=== PATIENT | male | born 1990 | race Caucasian/White ===

== ENCOUNTER 2024-02-11 16:20 | Outpatient (REF) | payer OTHER, SELFPAY ==
[2024-02-11 18:08] LABS: Creatinine Urine 139.57 mg/dL; Microalbum/Creatinine Ratio Ur 11.4 ug/mg cr (<30)
[2024-02-11 18:13] LABS: Alanine Aminotransferase 26 U/L (0-40); Albumin Level 4.3 g/dL (3.5-5.0); Alkaline Phosphatase 60 U/L (39-117); Anion Gap 13 (12-20); Aspartate Amino Transferase 15 U/L (5-37); Bilirubin Total 0.2 mg/dL (0.0-1.0); Blood Urea Nitrogen 20 mg/dL (9-16); Calcium 10.1 mg/dL (8.4-10.2); Carbon Dioxide 26 mmol/L (22-29); Chloride 106 mmol/L (96-108); Estimated Glomerular Filt Rate > 60; Glucose Random 120 mg/dL (60-115); Potassium 4.1 mmol/L (3.3-5.1); Sodium 141 mmol/L (135-145); Total Protein 7.2 g/dL (6.5-8.0); Uric Acid 9.8 mg/dL (3.4-7.0)
== END 2024-02-11 16:21 | disposition home or self-care (01) ==
LOC: HO.LAB 16:20
PROVIDERS: PCP Internal Medicine; Visit Provider Internal Medicine
DX: G47.33 Obstructive sleep apnea (adult) (pediatric) (principal); I10 Essential (primary) hypertension; M79.673 Pain in unspecified foot; N20.0 Calculus of kidney; Z68.42 Body mass index [BMI] 45.0-49.9, adult
CPT/HCPCS: 36415; 80053; 82043; 82570; 84550

== ENCOUNTER → 2024-02-16 14:46 | Outpatient (REF) | payer OTHER, SELFPAY ==
--- NOTE | 2024-02-16 14:56 | ECG_ITS ---
Test Reason : ADHD Blood Pressure : / mmHG Vent. Rate : 082 BPM Atrial Rate : 082 BPM P-R Int : 138 ms QRS Dur : 080 ms QT Int : 366 ms P-R-T Axes : 040 042 057 degrees QTc Int : 427 ms Normal sinus rhythm with sinus arrhythmia Increased R/S ratio in V1, consider early transition or posterior infarct - possibly normal variant or from body habitus/lead placement. Borderline ECG No previous ECGs available Referred By: Gustabo Carbone Electronically Signed By:SUPA GE
== END ==
LOC: HO.CARD 14:46
PROVIDERS: PCP Internal Medicine; Visit Provider Nurse Practitioner Psychiatric/Mental Health
DX: F90.9 Attention-deficit hyperactivity disorder, unspecified type (principal); F41.1 Generalized anxiety disorder; F32.A Depression, unspecified
CPT/HCPCS: 93005

== ENCOUNTER → 2024-02-16 14:56 | Outpatient (BNV) | payer OTHER, SELFPAY | PROVIDERS: PCP Internal Medicine; Visit Provider Internal Medicine | DX: I49.9 Cardiac arrhythmia, unspecified (principal) | CPT/HCPCS: 93010 ==

== ENCOUNTER 2024-03-26 12:29 | Outpatient (REF) | payer OTHER, SELFPAY ==
--- NOTE | ~2024-03-26 | XR_ITS ---
EXAMINATION: XR KNEE, LEFT XR KNEE AP STANDING CLINICAL INFORMATION: Pain. COMPARISON: None TECHNIQUE: Lateral and axial views of the left knee were obtained. AP bilateral standing view of the knees was obtained. FINDINGS: Bones and soft tissues are normal. No fracture or joint effusion. Alignment is anatomic. Joint spaces are well maintained. No abnormal soft tissue calcification. XR/XR knee LT 3V IMPRESSION: Normal knee radiographs. Electronically signed by: Froy Hector MD 04/15/2024 05:25 PM EDT
--- NOTE | ~2024-03-26 | XR_ITS ---
EXAMINATION: XR KNEE, RIGHT CLINICAL INFORMATION: Pain COMPARISON: None available. TECHNIQUE: Single AP standing view of the right knee. FINDINGS: No fracture, dislocation, or focal bone lesion. Alignment is anatomic. Joint spaces are maintained. Soft tissues appear normal. XR/XR knee RT 1V IMPRESSION: Normal AP view right knee. Electronically signed by: Anthony Molina MD 05/28/2024 10:15 AM EDT
== END 2024-03-26 12:30 | disposition home or self-care (01) ==
LOC: HO.HOSX 12:29
PROVIDERS: PCP Internal Medicine; Visit Provider Physician Assistant
DX: M25.569 Pain in unspecified knee (principal); M23.92 Unspecified internal derangement of left knee
CPT/HCPCS: 73560; 73562; 99202

== ENCOUNTER → 2024-03-26 12:32 | Outpatient (BNV) | payer OTHER, SELFPAY | PROVIDERS: PCP Internal Medicine; Visit Provider Radiology Diagnostic Radiology | DX: M25.562 Pain in left knee (principal) | CPT/HCPCS: 73560 ==

== ENCOUNTER 2024-03-26 12:55 | Outpatient (AMB) | payer OTHER, SELFPAY ==
--- NOTE | 2024-03-26 12:56 | A.OFFVIS_ITS ---
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 Patient reports off and on pain for a couple a couple weeks. He states that one day he started to have sharp pain all over the knee and it went behind the knee/calf. Patient mentions his knee would lock up on him as well. 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 The patient was evaluated on 02/26/24 with a complaint of left knee pain present for two days that woke him up from his sle ep. ? ? While in the office today, the patient reports intermittent pain for a couple of weeks. He expresses that he started to have sharp pain over the left knee. He claims this pain radiated behind the left knee and to the left calf. He also reports locking with the left knee. ? [facility] Social History (Updated 03/26/24 @ 13:04 by aMrvin Huerta) Alcohol intake: current Alcohol intake frequency: holidays/special occasions only Patient Tobacco Use Status: Never used Tobacco Substance Use Type: Marijuana Current occupational status: unemployed Review of Systems Const All systems reviewed & are unremarkable except as noted in HPI and below Physical Exam Vital Signs: BMI result Body Mass Index 45.9 Const General: cooperative and no acute distress Orientation/consciousness: patient oriented x3 Resp Effort & Inspection: normal respiratory effort and able to speak in complete sentences Cardio Peripheral pulses: Peripheral pulses 2+ throughout Skin General skin exam: no rashes or lesions noted Neuro General: patient oriented x3 Extrem Other: Left knee: Normal to inspection. No ecchymosis, erythema, or joint effusion. No tenderness to palpation along the medial or lateral joint lines. Full knee extension and flexion. Negative Sehllie's. Negative anterior drawer. NVI.? Assessment & Plan Assessment & Plan (1) Internal derangement of left knee: Code(s): M23.92 - Unspecified internal derangement of left knee Category: Medical Plan Mr. Acosta is a 33-year-old male who presents in the office today, as a new patient, for an evaluation of left knee pain. The patient was evaluated on 02/26/24 with a complaint of left knee pain present for two days that woke him up from his sleep. ?? ? While in the office today, the patient reports intermittent pain for a couple of weeks. He expresses that he started to have sharp pain over the left knee. He claims this pain radiated behind the left knee and to the left calf. He also reports locking with the left knee.? ? The patient was recently initiated on allopurinol 300 mg PO daily to treat gout. Therefore, the patient will be referred to Rheumatology for further evaluation and treatment. Follow-up will be PRN, or sooner if needed. ? ? X-rays of the left knee which were obtained while in the office today and were reviewed by me, Silvia Salazar PA-C, revealed no acute fracture or dislocation. ? Orders: Orders XR knee LT 3V Today M25.569 - Pain in unspecified knee XR knee RT 1V Today M25.569 - Pain in unspecified knee Referrals Rheumatology Referral M23.92 - Unspecified internal derangement of left knee Patient Instructions: Scribed by Shannon Bermudez, rn medical surgical, for Silvia Salazar PA-C on 03/26/2024 at 1:01 pm, EST.? Coding Level of Care Code New Pt Level 4 (58162) Diagnoses Internal derangement of left knee M23.92
[2024-03-26 13:05] VITALS: BMI 45.9
== END 2024-03-26 13:22 | disposition home or self-care (01) ==
PROVIDERS: PCP Internal Medicine; Visit Provider Physician Assistant
DX: M23.92 Unspecified internal derangement of left knee (principal)
CPT/HCPCS: 99203

== ENCOUNTER 2024-04-12 16:39 | Outpatient (REF) | payer OTHER, SELFPAY ==
[2024-04-12 18:39] LABS: Alanine Aminotransferase 25 U/L (0-40); Albumin Level 4.4 g/dL (3.5-5.0); Alkaline Phosphatase 62 U/L (39-117); Anion Gap 13 (12-20); Aspartate Amino Transferase 18 U/L (5-37); Bilirubin Total 0.6 mg/dL (0.0-1.0); Blood Urea Nitrogen 16 mg/dL (9-16); Calcium 9.7 mg/dL (8.4-10.2); Carbon Dioxide 25 mmol/L (22-29); Chloride 105 mmol/L (96-108); Estimated Glomerular Filt Rate > 60; Glucose Random 113 mg/dL (60-115); Potassium 3.3 mmol/L (3.3-5.1); Sodium 140 mmol/L (135-145); Total Protein 7.2 g/dL (6.5-8.0); Uric Acid 7.6 mg/dL (3.4-7.0)
== END 2024-04-12 16:40 | disposition home or self-care (01) ==
LOC: HO.LAB 16:39
PROVIDERS: PCP Internal Medicine; Visit Provider Internal Medicine
DX: E79.0 Hyperuricemia without signs of inflammatory arthritis and tophaceous disease (principal); G47.33 Obstructive sleep apnea (adult) (pediatric); I10 Essential (primary) hypertension; Z68.42 Body mass index [BMI] 45.0-49.9, adult
CPT/HCPCS: 36415; 80053; 84550

== ENCOUNTER 2024-05-06 07:50 | Outpatient (AMB) | payer OTHER, SELFPAY ==
--- NOTE | 2024-05-06 07:52 | MHC.OFFVIS ---
Vital Signs 05/06/24 07:57 Height 5 ft 11 in Weight 328 lb 4.293 oz BMI 45.8 BP 115/72 Blood Pressure Location Lt brachial Position Sitting Pulse 82 Pulse Source Pulse Oximeter Pulse Oximetry (%) 94 Oxygen Delivery Method Room Air Intake Visit Reasons: derangement of left knee Intake Note: Patient presents for derangement of the left knee. Allergies talcum podwer Allergy (Intermediate, Uncoded 03/26/24 13:01) Rash Medication List - Last Reconciled 05/06/24 by Adilene Gil MD allopurinol 300 mg PO DAILY bupropion HCl XL 300 mg PO QAM lisdexamfetamine (Vyvanse) 60 mg PO DAILY losartan-hydrochlorothiazide 50-12.5 mg 1 tab PO DAILY HPI Comments Details: Patient is a 33 y.o. morbidly obese male with depression/anxiety and HTN who presents for evaluation of recurrent joint pain and swelling. Patient states that for the past 10 years he has been having intermittent, transient monoarticular pain, redness and swelling (pictures on phone viewed showing swelling and overlying erythema to the 1st MTP, ankle and foot). Initially involving the feet including the 1st MTP and subsequently involving the ankles, knees, and elbows. Patient reports that he does not know of a trigger. He would wake with the pain and it would be so excruciating that he could not even walk. He also reports involvement of his right achilles tendon, but does note a previous injury to the tendon when he was a teenager. He also reports back pain and stiffness lasting 30-60 mins in the morning He denies history of psoriasis or any other rash, personal or known family history of IBD, hand pain/stiffness, dactylitis, hx of eye inflammation requiring eye drops. Risk Factors for Gout Obesity, HTN, and hydrochlorothiazide use Denies: Family history of gout, CKD, EtOH use and use of medications: low-dose ASA, cyclosporine PFSH Social History (Updated 03/26/24 @ 13:04 by Marvin Huerta) Alcohol intake: current Alcohol intake frequency: holidays/special occasions only Patient Tobacco Use Status: Never used Tobacco Substance Use Type: Marijuana Current occupational status: unemployed Review of Systems Const Details: Review of Systems Constitutional: Denies fever, chills, weight loss ENT: Denies vision changes, eye pain or eye redness, dental caries, dry mouth GI: Denies nausea, vomiting, diarrhea, abdominal pain, change in BM Pulm: Denies SOB, HUTCHINS, hemoptysis, wheezing Cards: Denies chest pain, palpitations Skin: Denies Raynaud's, rash, nail changes, photosensitivity, EQUAL OPPORTUNITY COUNSELOR: Denies headaches, weakness, paresthesias, recurrent falls MSK: as per HPI All other systems reviewed and are unremarkable except noted above Physical Exam Vital Signs: Last Vital Signs Pulse 82 05/06/24 07:57 BP 115/72 05/06/24 07:57 Pulse Ox 94 05/06/24 07:57 Oxygen Delivery Method Room Air 05/06/24 07:57 BMI result Body Mass Index 45.8 Const Other: Physical Examination Patient well appearing and in no apparent painful distress Able to rise from chair without support. ?Gait normal. Constitutional Mucous membranes pink and moist patient alert and cooperative HEENT Conjunctiva and sclera clear. ?Pupils equal round and reactive to light. ?No lymphadenopathy. ?Normal dentition. Respiratory System Normal respiratory effort and able to speak in complete sentences. ?Clear to auscultation bilaterally. ?No crackles, rales, rhonchi, wheezes heard. Cardiac System Regular rate and rhythm. ?S1 and S2 heard no murmurs. ?Radial pulses intact bilaterally MSK No deformity, swelling, abnormalities noted to bilateral hands. ?No evidence of synovitis. ?Able to move all joints with full range of motion, without limitation. Normal Schobers test and normal occiput to wall test Skin No tophi noted to digits on hand or feet, olecranon bursa, extensor surface of forearm, achilles tendon, antihelix of ear Normal nails without pitting Results Reviewed Results Reviewed: Laboratory Tests 02/11/24 04/12/24 16:28 15:25 Sodium 141 140 Potassium 4.1 3.3 Chloride 106 105 Carbon Dioxide 26 25 BUN 20 H 16 Creatinine 0.83 0.84 Uric Acid 9.8 H 7.6 H Knee x-ray 03/26/2024 reviewed ordered by Froy Hector. No evidence of chondrocalcinosis. No evidence of joint space narrowing or any effusions. (my read) Assessment & Plan Assessment & Plan (1) Inflammatory arthritis: Code(s): M19.90 - Unspecified osteoarthritis, unspecified site Plan: #Inflammatory arthritis Patient with symptoms consistent with crystalline arthropathy with recurrent periods of acute attacks and intercritical periods. This has primarily involved the feet, ankle and knees. Based on his hyperuricemia and this history, the story is most consistent with gout. Unfirtunately no fluid was ever removed and checked for gout. Differentials include ank spond, CCPD arthropathy, atypical presentation of RA. Will check CBC, CMP, UA, ESR and CRP Based on last UA done 03/2024 patient not at goal UA <6. Will increase allopurinol to 400mg and add colchicine 0.6mg to prevent flares Will also check XRs of SI joints, feet and ankles as well. Will reach out to radiology to determine if DECT can be done Plan I spent 65 minutes reviewing the record and labs, seeing the patient, discussing the treatment plan, contacting radiologists at [facility], [facility], [facility] and [facility] to locate a DECT and documenting in the medical record Orders: Orders XR ankle RT min 3V 4 Weeks M10.9 - Gout, unspecified, M19.90 - Unspecified osteoarthritis, unspecified site XR foot LT min 3V 4 Weeks M10.9 - Gout, unspecified, M19.90 - Unspecified osteoarthritis, unspecified site XR sacroiliac joint min 3V 4 Weeks M10.9 - Gout, unspecified, M19.90 - Unspecified osteoarthritis, unspecified site Cyclic Citrullinated Peptide 4 Weeks M10.9 - Gout, unspecified, M19.90 - Unspecified osteoarthritis, unspecified site Comprehensive Met. Panel 4 Weeks M10.9 - Gout, unspecified, M19.90 - Unspecified osteoarthritis, unspecified site [id number]-[id number] Dehydrogen 4 Weeks M10.9 - Gout, unspecified, M19.90 - Unspecified osteoarthritis, unspecified site HLA B27 4 Weeks M10.9 - Gout, unspecified, M19.90 - Unspecified osteoarthritis, unspecified site XR ankle LT min 3V 4 Weeks M10.9 - Gout, unspecified, M19.90 - Unspecified osteoarthritis, unspecified site XR foot RT min 3V 4 Weeks M10.9 - Gout, unspecified, M19.90 - Unspecified osteoarthritis, unspecified site Rheumatoid Factor 4 Weeks M10.9 - Gout, unspecified, M19.90 - Unspecified osteoarthritis, unspecified site Erythrocyte Sedimentation Rate 4 Weeks M10.9 - Gout, unspecified, M19.90 - Unspecified osteoarthritis, unspecified site Complete Blood Count Auto Diff 4 Weeks M10.9 - Gout, unspecified, M19.90 - Unspecified osteoarthritis, unspecified site C Reactive Protein 4 Weeks M10.9 - Gout, unspecified, M19.90 - Unspecified osteoarthritis, unspecified site Medications: New colchicine 0.6 mg PO DAILY 90 days 90 tabs 1RF allopurinol 400 mg (2 x 200 mg) PO DAILY 60 days 120 tabs 0RF Coding Level of Care Code New Pt Level 5 (33469) Complex EM visit Add On G2211 Diagnoses Inflammatory arthritis M19.90
[2024-05-06 07:57] VITALS: BP 115/72; PULSE 82; O2SAT 94; BMI 45.8
== END 2024-05-06 08:44 | disposition home or self-care (01) ==
PROVIDERS: PCP Internal Medicine; Visit Provider Student in an Organized Health Care Education/Training Program
DX: M19.90 Unspecified osteoarthritis, unspecified site (principal)
CPT/HCPCS: 99205; G2211

== ENCOUNTER → 2024-05-06 07:50 | Outpatient (BNVA) | payer OTHER, SELFPAY | PROVIDERS: PCP Internal Medicine; Visit Provider Student in an Organized Health Care Education/Training Program | DX: M19.90 Unspecified osteoarthritis, unspecified site (principal) | CPT/HCPCS: 99202 ==

== ENCOUNTER 2024-06-02 16:25 | Outpatient (REF) | payer OTHER, SELFPAY ==
[2024-06-02 16:45] LABS: MANUAL DIFF FLAG NO
[2024-06-02 19:49] LABS: Basophils Percent Auto 0.4 % (0-2); Eosinophils Absolute Auto 0.1 X10*3/uL (0.0-0.4); Eosinophils Percent Auto 0.7 % (0-4); Hematocrit 39.5 % (42.0-52.0); Hemoglobin 13.5 g/dl (14.0-18.0); Imm Gran Abs Auto 0.01 X10*3/uL (0.00-0.03); Imm Gran Pct Auto 0.1 % (0.0-0.4); Lymphocytes Absolute Auto 2.6 X10*3/uL (1.2-4.9); Lymphocytes Percent Auto 31.1 % (20-40); Mean Corpuscular HGB Conc 34.2 g/dl (31.0-36.0); Mean Corpuscular Hemoglobin 27.8 pg (27.0-33.0); Mean Corpuscular Volume 81.4 fL (80.0-98.0); Mean Platelet Volume 10.2 fL (9.4-12.4); Monocytes Absolute Auto 0.5 X10*3/uL (0.1-1.2); Monocytes Percent Auto 6.6 % (2-11); Neutrophils Percent Auto 61.1 % (45-73); Platelet Count 356 X10*3/uL (160-400); Red Blood Count 4.85 X10*6/uL (4.60-5.80); Red Cell Distribution Width 13.3 % (11.0-16.0); White Blood Count 8.2 X10*3/uL (4.8-10.8)
[2024-06-02 20:08] LABS: Rheumatoid Factor < 13.0 IU/mL (<15.0)
[2024-06-02 20:09] LABS: Alanine Aminotransferase 32 U/L (0-40); Albumin Level 4.6 g/dL (3.5-5.0); Alkaline Phosphatase 64 U/L (39-117); Anion Gap 18 (12-20); Aspartate Amino Transferase 23 U/L (5-37); Bilirubin Total 0.6 mg/dL (0.0-1.0); Blood Urea Nitrogen 18 mg/dL (9-16); C Reactive Protein 0.83 mg/dL (< or = 0.50); Calcium 9.8 mg/dL (8.4-10.2); Carbon Dioxide 24 mmol/L (22-29); Chloride 102 mmol/L (96-108); Estimated Glomerular Filt Rate > 60; Glucose Random 99 mg/dL (60-115); Potassium 3.7 mmol/L (3.3-5.1); Sodium 140 mmol/L (135-145); Total Protein 7.6 g/dL (6.5-8.0)
[2024-06-02 20:33] LABS: Erythrocyte Sedimentation Rate 19 MM/HR (0-15)
[2024-06-08 09:19] LABS: Cyclic Citrullinated Peptide <16 UNITS
[2024-06-09 20:54] LABS: HLA B27 Negative (Negative)
[2024-06-09 21:24] LABS: Glucose-6-Phosphate Dehydrogen 24.9 U/g Hgb (7.0-20.5)
== END 2024-06-02 16:26 | disposition home or self-care (01) ==
LOC: HO.LAB 16:25
PROVIDERS: PCP Internal Medicine; Visit Provider Student in an Organized Health Care Education/Training Program
DX: M19.90 Unspecified osteoarthritis, unspecified site (principal); M10.9 Gout, unspecified
CPT/HCPCS: 36415; 72202; 73610; 73630; 80053; 82955; 85025; 85652; 86140; 86200; 86431; 86812

== ENCOUNTER 2024-06-03 10:44 | Outpatient (AMB) | payer OTHER, SELFPAY ==
[2024-06-03 10:47] VITALS: BP 128/70; PULSE 72; O2SAT 98; BMI 44.5
--- NOTE | 2024-06-03 10:47 | MHC.OFFVIS ---
Vital Signs 06/03/24 10:47 Height 5 ft 11 in Weight 319 lb BMI 44.5 BP 128/70 Blood Pressure Location Lt brachial Position Sitting Pulse 72 Pulse Source Pulse Oximeter Pulse Oximetry (%) 98 Oxygen Delivery Method Room Air Intake Visit Reasons: derangement of left knee/cm Intake Note: Patient presents for follow up on derangement of left knee. He was last seen in the office with Dr. Gil on 05/06/24. Allergies talcum podwer Allergy (Intermediate, Uncoded 06/03/24 10:49) Rash Medication List - Last Reconciled 06/03/24 by Adilene Gil MD allopurinol 400 mg (2 x 200 mg) PO DAILY 90 days bupropion HCl XL 300 mg PO QAM colchicine 0.6 mg PO DAILY 90 days lisdexamfetamine (Vyvanse) 60 mg PO DAILY losartan-hydrochlorothiazide 50-12.5 mg 1 tab PO DAILY HPI Comments Details: Patient is a 33-year-old morbidly obese male with depression/anxiety and hypertension presents for follow up of recurrent joint pain and swelling Interval History: Last seen 05/06/2024 with me. At that time patient was being evaluated for polyarticular complaints including recurrent monoarticular arthritis of the 1st MTP, ankle and foot swelling as well as back pain. Based on his history and exam the most likely diagnosis was gout. Labs including HLA B27 and imaging including SI joint x-rays did not reveal any sacroiliitis. Today patient states he is doing overall better. No further monoarticular arthritic attacks since starting allopurinol. The allopurinol dose was increased last visit due to uric acid not at goal and patient is tolerating this well as well as the colchicine. Rheumatologic History: Presented with recurrent monoarticular arthritis involving the 1st MTP, ankle as well as foot. Presumed diagnosis of gout. Started on allopurinol Current Rheumatology Medication(s): Allopurinol 400mg Colchicine 0.6 mg [facility] Medical History (Updated 06/03/24 @ 11:16 by Adilene Gil MD) Gout Social History (Updated 03/26/24 @ 13:04 by Marvin Huerta) Alcohol intake: current Alcohol intake frequency: holidays/special occasions only Patient Tobacco Use Status: Never used Tobacco Substance Use Type: Marijuana Current occupational status: unemployed Review of Systems Const Details: Review of Systems Constitutional: Denies fever, chills, weight loss ENT: Denies vision changes, eye pain or eye redness, dental caries, dry mouth GI: Denies nausea, vomiting, diarrhea, abdominal pain, change in BM Pulm: Denies SOB, HUTCHINS, hemoptysis, wheezing Cards: Denies chest pain, palpitations Skin: Denies Raynaud's, rash, nail changes, photosensitivity, MORTGAGE LOAN COORDINATOR: Denies headaches, weakness, paresthesias, recurrent falls MSK: as per HPI All other systems reviewed and are unremarkable except noted above Physical Exam Vital Signs: Last Vital Signs Pulse 72 06/03/24 10:47 BP 128/70 06/03/24 10:47 Pulse Ox 98 06/03/24 10:47 Oxygen Delivery Method Room Air 06/03/24 10:47 BMI result Body Mass Index 44.5 Physical Examination CONSTITUITIONAL Patient alert and cooperative. Well appearing and in no apparent painful distress HEENT Conjunctiva and sclera clear. ?Pupils equal round and reactive to light. ?No lymphadenopathy. ?Normal dentition. No oral or nasal ulcers noted. No evidence of discoid rash to the mili of ears CHEST/RESPIRATORY SYSTEM Normal respiratory effort and able to speak in complete sentences. ?Clear to auscultation bilaterally. ?No crackles, rales, rhonchi, wheezes heard. CARDIAC SYSTEM Regular rate and rhythm. ?S1 and S2 heard no murmurs. ?Radial pulses intact bilaterally MSK Hands: ?Good agriculture specialist strength bilaterally - 5/5. ?No deformities noted. ?No synovitis noted to the MCPs, PIPs or DIPs. ?No tenderness to palpation of these joints. Wrists: ?Full range of motion at the wrists without pain. ?No tenderness to palpation or synovitis noted to the wrists. Elbows: Full range of motion without pain. No tenderness, weakness, swelling, increased warmth or erythema. Shoulders: Full range of motion without pain. No tenderness, weakness, swelling, increased warmth or erythema. Hips: Full range of motion without pain. Hip bursa: No tenderness to palpation Knees: ?Full range of motion. ?No tenderness, swelling, increased warmth or erythema.?No effusion or crepitations Ankles: Full range of motion. ?No tenderness, swelling, increased warmth or erythema.? Feet: ?Negative squeeze test. ?No tenderness to palpation or swelling of the MTPs. Tender points:??No tenderness to palpation of the neck, shoulders, chest, elbows, hips, buttocks or knees. SKIN Skin intact without rashes. No tophi noted Results Reviewed Results Reviewed: Laboratory Tests 02/11/24 04/12/24 06/02/24 16:28 15:25 16:43 WBC 8.2 RBC 4.85 Hgb 13.5 L Hct 39.5 L Plt Count 356 ESR 19 H Sodium 140 Potassium 3.7 Chloride 102 Carbon Dioxide 24 BUN 18 H Creatinine 0.84 Uric Acid 9.8 H 7.6 H C-Reactive Protein 0.83 H Assessment & Plan Assessment & Plan (1) Gout: Code(s): M10.9 - Gout, unspecified Category: Medical Qualifiers: Gout site: foot Gout etiology: idiopathic Chronicity: chronic Laterality: unspecified laterality Presence of tophus: without tophus Qualified Code(s): M1A.0790 - Idiopathic chronic gout, unspecified ankle and foot, without tophus (tophi) Plan: # non crystal proven non tophaceous gout No further attacks of recurrent monoarticular arthritis. We will continue allopurinol at 400 mg. Check uric acid. We will also check dual energy CT scan, patient given script and told to contact [facility] Plan I spent 20 minutes reviewing the record and labs, seeing the patient, discussing the treatment plan and documenting in the medical record Orders: Orders Comprehensive Met. Panel 3 Months M10.9 - Gout, unspecified Complete Blood Count Auto Diff 3 Months M10.9 - Gout, unspecified C Reactive Protein 3 Months M10.9 - Gout, unspecified Erythrocyte Sedimentation Rate 3 Months M10.9 - Gout, unspecified Uric Acid Today M10.9 - Gout, unspecified Medications: Changed From allopurinol 400 mg (2 x 200 mg) PO DAILY 60 days 120 tabs 0RF M10.9 - Gout, unspecified To allopurinol 400 mg (2 x 200 mg) PO DAILY 90 days 180 tabs 1RF M10.9 - Gout, unspecified Coding Level of Care Code Est Pt Level 3 (17829) Complex EM visit Add On G2211 Diagnoses Idiopathic chronic gout of foot without tophus, unspecified laterality M1A.0790 Gout site: foot Gout etiology: idiopathic Chronicity: chronic Laterality: unspecified laterality Presence of tophus: without tophus
== END 2024-06-03 11:17 | disposition home or self-care (01) ==
LOC: HO.RHE 10:45
PROVIDERS: PCP Internal Medicine; Visit Provider Student in an Organized Health Care Education/Training Program
DX: M1A.0790 Idiopathic chronic gout, unspecified ankle and foot, without tophus (tophi) (principal)
CPT/HCPCS: 99213; G2211

== ENCOUNTER → 2024-06-03 10:44 | Outpatient (BNVA) | payer OTHER, SELFPAY | PROVIDERS: PCP Internal Medicine; Visit Provider Student in an Organized Health Care Education/Training Program | DX: M1A.0790 Idiopathic chronic gout, unspecified ankle and foot, without tophus (tophi) (principal); M23.92 Unspecified internal derangement of left knee; E66.01 Morbid (severe) obesity due to excess calories; Z68.41 Body mass index [BMI] 40.0-44.9, adult | CPT/HCPCS: 99212 ==

== ENCOUNTER 2024-10-21 15:38 | Outpatient (REF) | payer OTHER, SELFPAY ==
[2024-10-21 15:58] LABS: MANUAL DIFF FLAG NO
[2024-10-21 17:10] LABS: Basophils Percent Auto 0.4 % (0-2); Eosinophils Absolute Auto 0.1 X10*3/uL (0.0-0.4); Eosinophils Percent Auto 1.6 % (0-4); Hematocrit 39.9 % (42.0-52.0); Hemoglobin 13.7 g/dl (14.0-18.0); Imm Gran Abs Auto 0.02 X10*3/uL (0.00-0.03); Imm Gran Pct Auto 0.3 % (0.0-0.4); Lymphocytes Absolute Auto 2.5 X10*3/uL (1.2-4.9); Lymphocytes Percent Auto 33.7 % (20-40); Mean Corpuscular HGB Conc 34.3 g/dl (31.0-36.0); Mean Corpuscular Hemoglobin 28.4 pg (27.0-33.0); Mean Corpuscular Volume 82.6 fL (80.0-98.0); Mean Platelet Volume 9.6 fL (9.4-12.4); Monocytes Absolute Auto 0.6 X10*3/uL (0.1-1.2); Monocytes Percent Auto 8.4 % (2-11); Neutrophils Absolute Auto 4.2 x10*3/uL (2.0-8.3); Neutrophils Percent Auto 55.6 % (45-73); Platelet Count 302 X10*3/uL (160-400); Red Blood Count 4.83 X10*6/uL (4.60-5.80); Red Cell Distribution Width 12.5 % (11.0-16.0); White Blood Count 7.5 X10*3/uL (4.8-10.8)
[2024-10-21 17:45] LABS: Alanine Aminotransferase 72 U/L (0-40); Albumin Level 4.3 g/dL (3.5-5.0); Alkaline Phosphatase 54 U/L (39-117); Anion Gap 11 (12-20); Aspartate Amino Transferase 36 U/L (5-37); Bilirubin Total 0.4 mg/dL (0.0-1.0); Blood Urea Nitrogen 21 mg/dL (9-16); Calcium 9.3 mg/dL (8.4-10.2); Carbon Dioxide 27 mmol/L (22-29); Chloride 107 mmol/L (96-108); Estimated Glomerular Filt Rate > 60; Glucose Random 125 mg/dL (60-115); Potassium 3.9 mmol/L (3.3-5.1); Sodium 141 mmol/L (135-145); Total Protein 6.8 g/dL (6.5-8.0)
[2024-10-21 17:59] LABS: Thyroid Stimulating Hormone 1.78 uIU/mL (0.32-4.0)
== END 2024-10-21 15:39 | disposition home or self-care (01) ==
LOC: HO.LAB 15:38
PROVIDERS: PCP Internal Medicine; Visit Provider Internal Medicine
DX: G47.33 Obstructive sleep apnea (adult) (pediatric) (principal); I10 Essential (primary) hypertension; R53.83 Other fatigue; R63.5 Abnormal weight gain; M54.50 Low back pain, unspecified
CPT/HCPCS: 36415; 80053; 84443; 85025

== ENCOUNTER 2024-11-25 15:05 | Outpatient (AMB) | payer OTHER, SELFPAY ==
[2024-11-25 15:11] VITALS: BP 132/80; PULSE 97; O2SAT 99; BMI 47.7
--- NOTE | 2024-11-25 15:11 | A.OFFVIS_ITS ---
Vital Signs 11/25/24 15:11 Height 5 ft 11 in Weight 341 lb 11.464 oz BMI 47.7 BP 132/80 Blood Pressure Location Lt brachial Position Sitting Pulse 97 Pulse Source Pulse Oximeter Pulse Oximetry (%) 99 Oxygen Delivery Method Room Air Intake Visit Reasons: knee pain Intake Note: Patient states he is experiencing left achiles pain for a week and a half. Allergies talcum podwer Allergy (Intermediate, Uncoded 11/25/24 15:16) Rash Medication List - Last Reconciled 11/25/24 by Adilene Gil MD allopurinol 400 mg (2 x 200 mg) PO DAILY 90 days bupropion HCl XL 300 mg PO QAM colchicine 0.6 mg PO DAILY 90 days lisdexamfetamine (Vyvanse) 60 mg PO DAILY losartan-hydrochlorothiazide 50-12.5 mg 1 tab PO DAILY prednisone 10 mg PO DIRECTED HPI Comments Details: Patient is a 33-year-old morbidly obese male with depression/anxiety, hypertension and non crystal proven gout here today for follow up Interval History: Patient last seen 06/03/2024 with me. At at that time he was following up for a new diagnosis of presumed gout based on recurrent monoarticular arthritis of the 1st MTP, ankle and foot. He was tolerating allopurinol as well as colchicine. Today, Doing well tolerating meds Complaining of left heel pain for the past few days Rheumatologic History: Presented with recurrent monoarticular arthritis involving the 1st MTP, ankle as well as foot. Presumed diagnosis of gout. Started on allopurinol Current Rheumatology Medication(s): Allopurinol 400mg Colchicine 0.6 mg [facility] Medical History (Updated 06/03/24 @ 11:16 by Adilene Gil MD) Gout Social History (Updated 03/26/24 @ 13:04 by Marvin Huerta) Alcohol intake: current Alcohol intake frequency: holidays/special occasions only Patient Tobacco Use Status: Never used Tobacco Substance Use Type: Marijuana Current occupational status: unemployed Review of Systems Const Details: Review of Systems Constitutional: Denies fever, chills, weight loss ENT: Denies vision changes, eye pain or eye redness, dental caries, dry mouth GI: Denies nausea, vomiting, diarrhea, abdominal pain, change in BM Pulm: Denies SOB, HUTCHINS, hemoptysis, wheezing Cards: Denies chest pain, palpitations Skin: Denies Raynaud's, rash, nail changes, photosensitivity, [employer]: Denies headaches, weakness, paresthesias, recurrent falls MSK: as per HPI All other systems reviewed and are unremarkable except noted above Physical Exam Vital Signs: Last Vital Signs Pulse 97 11/25/24 15:11 BP 132/80 11/25/24 15:11 Pulse Ox 99 11/25/24 15:11 Oxygen Delivery Method Room Air 11/25/24 15:11 BMI result Body Mass Index 47.7 Vital signs reviewed Physical Examination CONSTITUITIONAL Patient alert and cooperative. Well appearing and in no apparent painful distress HEENT Conjunctiva and sclera clear. ?Pupils equal round and reactive to light. ?No lymphadenopathy. ? CHEST/RESPIRATORY SYSTEM Normal respiratory effort and able to speak in complete sentences. ?Clear to auscultation bilaterally. ?No crackles, rales, rhonchi, wheezes heard. CARDIAC SYSTEM Regular rate and rhythm. ?S1 and S2 heard no murmurs. ?Radial pulses intact bilaterally MSK Hands: ?Able to make a fist. No synovitis noted to the MCPs, PIPs or DIPs. ?No tenderness to palpation of these joints. No deformities noted. ? Wrists: ?Full range of motion at the wrists without pain. ?No tenderness to palpation or synovitis noted to the wrists. Elbows: Full range of motion without pain. No tenderness, weakness, swelling, increased warmth or erythema. Shoulders: Full range of active range of motion without pain. No tenderness, weakness, swelling, increased warmth or erythema. Knees: ?Full range of motion. ?No tenderness, swelling, increased warmth or erythema.?Crepitations bilaterally Ankles: Full range of motion. ?No tenderness, swelling, increased warmth or erythema.? Feet: ?Negative squeeze test. ?No tenderness to palpation or swelling of the MTPs. TTP of the achilles tendon insertion Tender points:?No tenderness to palpation of the bilateral trapezius, supraspinatus, greater trochanters, anterior costochondral junctions, bilateral gluteal areas, bilateral suboccipital muscle insertions SKIN Skin intact without rashes. No Tophi Results Reviewed Results Reviewed: Laboratory Tests 04/12/24 06/02/24 10/21/24 15:25 16:43 15:56 WBC 7.5 RBC 4.83 Hgb 13.7 L Hct 39.9 L Plt Count 302 ESR 19 H Sodium 141 Potassium 3.9 Chloride 107 Carbon Dioxide 27 BUN 21 H Creatinine 0.84 Uric Acid 7.6 H AST 36 ALT 72 H Alkaline Phosphatase 54 C-Reactive Protein 0.83 H Assessment & Plan Assessment & Plan (1) Gout: Code(s): M10.9 - Gout, unspecified Category: Medical Qualifiers: Gout site: foot Gout etiology: idiopathic Chronicity: chronic Laterality: unspecified laterality Presence of tophus: without tophus Qualified Code(s): M1A.0790 - Idiopathic chronic gout, unspecified ankle and foot, without tophus (tophi) Plan: #Non crystal proven non tophaceous gout Patient is a 33-year-old male with presumed gouty arthritis here today for follow up. Complaining of what seems to be Achilles enthesitis. This could be related to gout but given that we are not sure if he truly has gout or has some kind of other inflammatory arthritis I think exploring other diagnoses at this time would be prudent. He did mention that he at times gets abdominal pain, cramping associated with bloody stools which could be related to IBD. We will send him to GI for further evaluation. In the meantime we will give him a short course of steroids to speed up his recovery Plan - Allopurinol 400mg daily - Colchicine 0.6mg daily - Prednisone: 40mg x 3 days then 30mg x 3 days then 20mg x 3 days then 10 mg x 3 days then 5mg x 3 days then stop - GI Referral to [facility] for IBD - Labs today: CBC, CMP, ESR, CRP, UA - RTC 4 months (2) Bilateral primary osteoarthritis of knee: Code(s): M17.0 - Bilateral primary osteoarthritis of knee Plan: #Bilateral knee OA Patient's exam today is consistent with bilateral knee osteoarthritis. Encouraged weight loss. (3) Encounter for monitoring allopurinol therapy: Code(s): Z51.81 - Encounter for therapeutic drug level monitoring; Z79.899 - Other nursing home (current) drug therapy Plan: #Long-term Current Use of Allopurinol Risks and benefits of allopurinol discussed with patient Benefits include decreased gout flares, remission of gout and reduction of tophi Risks include allopurinol hypersensitivity syndrome which is a severe cutaneous adverse reaction associated with allopurinol use particularly in patients who are HLA B*5801 positive, increased transaminases, GI upset including diarrhea, nausea and vomiting, and other dermatologic manifestations. (4) On colchicine therapy: Code(s): Z79.899 - Other extermination inspector (current) drug therapy Plan: #Long-term use of colchicine Risks and benefits of long-term colchicine for the management of this patient's gout discussed with patient. Benefits include reduced occurrence of flares while we titrate and regulate his uric acid on allopurinol and other uric acid lowering medications. ? Risks include worsening myalgias especially if on statins and GI upset including diarrhea Plan I spent 30 minutes reviewing the record and labs, seeing the patient, discussing the treatment plan and documenting in the medical record Orders: Referrals Gastroenterology Referral K52.9 - Noninfective gastroenteritis and colitis, unspecified Medications: New prednisone Take 4 tablets for 3 days then 3 tablets for 3 days then 2 tablets for 3 days then 1 tablet for 3 days then stop 10 mg PO DIRECTED 30 tabs 0RF M1A.0790 - Idiopathic chronic gout, unspecified ankle and foot, without tophus (tophi) prednisone Take 4 tablets for 3 days then 3 tablets for 3 days then 2 tablets for 3 days then 1 tablet for 3 days then 0.5 tablets for 3 days then stop 10 mg PO DIRECTED 35 tabs 0RF M1A.0790 - Idiopathic chronic gout, unspecified ankle and foot, without tophus (tophi) Coding Level of Care Code Est Pt Level 4 (08129) Complex EM visit Add On G2211 Diagnoses Idiopathic chronic gout of foot without tophus, unspecified laterality M1A.0790 Gout site: foot Gout etiology: idiopathic Chronicity: chronic Laterality: unspecified laterality Presence of tophus: without tophus Bilateral primary osteoarthritis of knee M17.0 Encounter for monitoring allopurinol therapy Z51.81; Z79.899 On colchicine therapy Z79.899
--- OUTSIDE RECORDS SUMMARY | 2024-11-25 16:58 | XMS_ITS | Encounter Summary ---
Author Organization [facility] [employer] [facility] Address [address] [place] [address] [address] [place] [address] Care Team Providers Care Bag Bailer Name Role Phone Unavailable Primary Care Provider Unavailabl e Encounter Details Date Type Department Care Team (Latest Contact Info) Description 05/08/2022 Abstract C CONVERSIONS Dental, Provider, DDS Social History Tobacco Use Types Packs/Day Years Used Date Smoking Tobacco: Never Assessed Sex and Gender Information Value Date Recorded Sex Assigned at Male 05/27/2022 10:40 AM EDT Legal Sex Male 10:40 AM EDT Gender Identity Choose not to disclose 2 10:40 AM EDT Sexual Orientation Choose not to disclose 2021 10:40 AM EDT documented as of this encounter Plan of Treatment Not on file documented as of this encounter Visit Diagnoses Not on filedocumented in this encounter
--- OUTSIDE RECORDS SUMMARY | 2024-11-25 16:58 | XMS_ITS | Data Portability ---
Author Organization [place] - [facility] [id number] Address [address] [place] [address] Assessment No assessment recorded. Plan of Treatment Reminders Order Date Submit Date Provider Last Modified By Organization Details Last Modified Time Details Appointments None record ed. Lab None record ed. Referral None record ed. Procedures None record ed. Surgeries None record ed. Imaging None record ed. Medication Orders None record ed. Patient TargetsNo targets recorded. Patient InstructionsNo instructions recorded. Reason for Referral None Reported. Problems Name Problem SNOMED Code Status Onset Date Resolution Date Notes Provider Name and Address Organization Details Recorded Time Hypertensive disorder 33634101 Active Mana Lila null, [place] - [facility] 4 14:07:10 Anxiety 41120068 Active Mana Lila null, [place] - [facility] 4 14:07:16 Depressive disorder 62498881 Active Mana Lila null, [place] - [facility] 4 14:07:21 Attention deficit hyperactivity disorder 550800661 Active Mana Lila null, [place] - [facility] 4 14:07:27 Problem Notes None recorded. Procedures Surgical History Date Name Laterality Status Provider Name and Address Organization Details Recorded Time Remove tonsils and adenoids completed Mana Lila [place] - [facility] 03/09/2024 14:07:53 Imaging Results None recorded. Procedure Notes None recorded. Medical Equipment None Reported. Medications Name Sig Start Date Stop Date Status Note LastModified by Organization Details LastModified Time losartan active Not Available Not Avai lable Not Available allopurinol active Not Available Not A vailable Not Available Wellbutrin SR active Not Available Not Available Not Available Vyvanse active Not Available Not Avail able Not Available Vitals Date Recorded Body height Body mass index (BMI) Body weight Oxygen saturation Oxygen saturation in Arterial blood by Pulse oximetry Heart rate Respiratory rate Body temperature Systolic blood pressure Diastolic blood pressure Provider Name and Address Organization Details Last Updated DateTime 180.34 cm 46.9 kg/m2 835055. 04 g 98 % 98 % 71 /min 18 /min 98.7 [degF] 104 mm[Hg] 63 mm[Hg] Mana Lila [place] - [facility] 14:09:43 Social History Question Answer Notes LastModified by Organizat ion Details LastModified Time Tobacco Smoking Status Never Smoker Mana Lila null, [place] - [facility] 03/09/2024 14:07:40 What Is Your Level Of Alcohol Consumption? None Information not available 03/09/2024 Are You Currently Employed? No Information not available 03/09/2024 Which Illicit Or Recreational Drugs Have You Used? Marijuana Information not available 03/09/2024 Do You Use Any Illicit Or Recreational Drugs? Yes Information not available 03/09/2024 Have You Recently Traveled Abroad? No Information not available 03/09/2024 Do You Or Have You Ever Used Any Other Forms Of Tobacco Or Nicotine? No Information not available 03/09/2024 Sex: Unknown Functional Status None recorded. Mental Status None recorded. Family History Nothing Reported. Medical History No medical history recorded. Immunizations Vaccine Type Date Status Note Provider Nam e and Address Organization Details Recorded Time COVID-19, mRNA, LNP-S, bivalent, PF, 30 mcg/0.3 mL dose 07/05/2022 completed Mana Lila null, [place] - [facility] 03/09/2024 14:06:04 Influenza, split virus, quadrivalent, PF 07/05/2022 completed Mana Lila null, [place] - [facility] 03/09/2024 14:06:04 Past Encounters Encounter ID Performer Location Encounter Start Date Encounter Closed Date Diagnosis/Indication Diagnosis SNOMED-CT Code Diagnosis ICD10 Code Diagnosis Note [id number] [id number] [place] [address] 02/26/2022 15:26:14 02/26/2022 16:37:44 [id number] [facility]AN[facility] HIGH [id number] [facility] [address] [place] [address] 03/09/2024 13:58:32 03/09/2024 14:14:45 Mass of skin 511951757 R22.9 You were today for concern about a small lump on the left side of your chest.On exam, there is nothing in the area that is concerning or abnormal. You were most likely feeling some of the larger fat cells in the area. If anything changes or starts growing, definitely get rechecked Health Concerns Section Related Observation LastModified by Organization Detai ls LastModified Time None Recorded Concern Status LastModified by Organization Details LastModified Time None Recorded Advance Directives Directive None Recorded Payers Encounter Date Sequence Insurance Name Policy Number Policy Stark Covered Member ID Stark Member ID Guarantor Name 02/26/2022 1 [facility] PLAN (MEDICAID HMO) [id number] Loco Acosta [id number] Loco Acosta 03/09/2024 1 [facility] PLAN (MEDICAID HMO) [id number] Loco Acosta [id number] Loco Acosta Notes Date Note Type Note Provider Name and Address Organization Details Recorded Time 03/09/2024 text/html 33 y/o male here with tender bump on his L chest, under breast area, has lost a lot of weight recently, and wants to make sure there isn't anything abnormal ELEANOR Ibarra [facility] [place], [address], [place] - [facility] 03/09/2024 14:20:28
--- OUTSIDE RECORDS SUMMARY | 2024-11-25 16:58 | XMS_ITS | Clinical Summary ---
Author Organization [email or web address] Address [address] [place] [address] [address] [place] [address] Care Team Providers Care Health Information Administrator Name Role Phone Unavailable Primary Care Provider Unavailabl e Social History Tobacco Use Types Packs/Day Years Used Date Smoking Tobacco: Never Assessed Sex and Gender Information Value Date Recorded Sex Assigned at Male 05/27/2022 10:40 AM EDT Legal Sex Male 10:40 AM EDT Gender Identity Choose not to disclose 10:40 AM EDT Sexual Orientation Choose not to disclose 2021 10:40 AM EDT Plan of Treatment Health Maintenance Due Date Last Done Comments Depression Screening 1991 Alcohol/Substance Use Screening 2003 Tobacco Screening 2003 Family Planning (PISQ) 12/08/2006 DTaP/Tdap/Td Vaccines (1 - Tdap) 12/08/2010 Hepatitis B Vaccines (1 of 3 - 19+ 3-dose series) 12/08/2010 COVID-19 Vaccine ( - 2023-2 5 season) 2024 Influenza Vaccine (#1) 2024 Zoster Vaccines (1 of 2) 12/08/2041 RSV Patients and Pa tients Aged 60 years or older (1 - 1-dose 75+ series) 12/08/2066 HIB Vaccines Aged Out No longer eligi ble based on patient's age to complete this topic HPV Vaccines Aged Out No longer eligi ble based on patient's age to complete this topic Hepatitis A Vaccines Aged Out No long er eligible based on patient's age to complete this topic IPV Vaccines Aged Out No longer eligi ble based on patient's age to complete this topic Meningococcal Vaccine Aged Out No maycol fadumo eligible based on patient's age to complete this topic Pneumococcal Vaccine: Pediat rics (0 to 5 Years) and At-Risk Patients (6 to 49) Years) Aged Out No longer eligible b ased on patient's age to complete this topic RSV under 20 months Aged Out No longe r eligible based on patient's age to complete this topic Rotavirus Vaccines Aged Out No longer eligible based on patient's age to complete this topic
--- OUTSIDE RECORDS SUMMARY | 2024-11-25 16:58 | XMS_ITS | Clinical Summary ---
Author Organization 175 [facility] Address 175 [place] [address] Phone Care Team Providers Care Mechanical Technologist Name Role Phone Jeane Harper MD Primary Care Provider [phone] Allergies No known active allergies Medications lisdexamfetamin e (VYVANSE) 20 mg capsule Take 1 Capsule by mouth every morning. Active buPROPion XL (WELLBUTRIN XL) 300 mg 24 hr tablet Take 1 Tablet by mouth every morning. Active losartan-hydroC HLOROthiazide (HYZAAR) 50-12.5 mg per tablet Take 1 tablet by mouth 1 (one) time each day. Active allopurinoL 200 mg tablet Take 200 mg by mouth 1 (one) time each day. 08/23/2024 Active naproxen (NAPROSYN) 500 mg tablet Take 1 tablet (500 mg total) by mouth 2 (two) times a day with meals. Active colchicine (COLCRYS) 0.6 mg tablet Take 1 tablet (0.6 mg total) by mouth 1 (one) time each day. 08/15/2024 Active Active Problems Problem Noted Date Diagnosed Date ADHD 02/13/2024 Autism 02/13/2024 Depression 02/13/2024 Hypertension 02/13/2024 Morbid obesity (CMS/HCC V24, CMS/HCC V28) 2023 PTSD (post-traumatic stress disorder) 02/13/2024 Encounters Date Type Department Care Team Description 11/01/2024 3:15 PM EDT Office Visit Orthopedic Surgery [facility] 250 175 [facility] [address] [place] [address] Leeroy Lee, DPM Plantar fascial fibromatosis (Primary Dx); Follow-up exam; Tendinitis of right ankle; Tendinitis of left ankle 09/20/2024 2:30 PM EST Consult Bariatric Surgery - [place] [address] [address] Jerome Higgins MD Class 3 severe obesity due to excess calories without serious comorbidity with body mass index (BMI) of 45.0 to 49.9 in adult (CMS/HCC V24, CMS/HCC V28) (Primary Dx); Obesity (BMI 35.0-39.9 without comorbidity) 09/20/2024 Telephone Bariatric Surgery - [place] [address] [address] Jerome Higgins MD from Last 3 Months Social History Tobacco Use Types Packs/Day Years Used Date Smoking Tobacco: Never Assessed Sex and Gender Information Value Date Recorded Sex Assigned at Not on file Legal Sex Male 11:04 AM EDT Gender Identity Not on file Sexual Orientation Not on file Last Filed Vital Signs Vital Sign Reading Time Taken Comments Blood Pressure 134/84 09/20/2024 2:48 PM EST Pulse 90 09/20/2024 2:48 PM EST Temperature 36.8 ??C (98.2 ??F) 09/20/2024 2:48 PM ES T Respiratory Rate - - Oxygen Saturation - - Inhaled Oxygen Concentration - - Weight 156 kg (343 lb) 09/20/2024 2:48 PM EST Height 180.3 cm (5' 11 ) 09/20/2024 2:48 PM EST Body Mass Index 47.84 09/20/2024 2:48 PM EST Plan of Treatment Health Maintenance Due Date Last Done Comments Hepatitis B Vaccines (1 of 3 - 19+ 3-dose series) 12/08/2010 HIV Screening 02/20/2024 Social Influencers of Health Screening 02/20/2024 COVID-19 Vaccine (2 - 2023-2 5 season) 2024 07/05/2022 Depression Screening 02/12/2025 02/13/2024 Influenza Vaccine (Season Ended) 2025 07/05/2022, 05/24/2009, 05/24/2009 Hypertension/CHF/CAD Annual BMP Blood Test 09/24/2025 09/24/2024, 10/22/2017 DTaP,Tdap,and Td Vaccines (2 - Td or Tdap) 10/23/2027 10/22/2017 Cholesterol Screening (Lipid Panel) 09/24/2029 09/24/2024 Hepatitis C Screening Completed 10/22/2017 HIB Vaccines Aged Out No longer eligi [...] on patient's age to complete this topic MMR Vaccines Aged Out No longer eligi ble based on patient's age to complete this topic Meningococcal ACWY Vaccine Aged Out N o longer eligible based on patient's age to complete this topic Meningococcal B Vaccine Aged Out No l onger eligible based on patient's age to complete this topic Pneumococcal Vaccine: Pediatrics (0 to 5 Years) and At-Risk Patients (6 to 64 Years) Aged Out No longer eligible b ased on patient's age to complete this topic RSV Immunization Patients Under 20 months Aged Out No longer eligible b ased on patient's age to complete this topic Varicella Vaccines Aged Out No longer eligible based on patient's age to complete this topic Procedures Procedure Name Priority Date/Time Associated Diagnosis Comments XR FOOT 3+ VIEWS BILAT Routine 3:36 PM EDT Follow-up exam LIPID PANEL WITH REFLEX TO DIRECT LDL Routine 09/24/2024 3:48 PM EST Class 3 severe obesity due to excess calories without serious comorbidity with body mass index (BMI) of 45.0 to 49.9 in adult (CMS/HCC V24, CMS/HCC V28) COMPREHENSIVE METABOLIC PANEL Routine 09/24/2024 3:48 PM EST Class 3 severe obesity due to excess calories without serious comorbidity with body mass index (BMI) of 45.0 to 49.9 in adult (CMS/HCC V24, CMS/HCC V28) HM DEPRESSION SCREENING Routine 02/13/2024 from Last 3 Months or Most Recently Relevant to Health Maintenance Results * XR Foot 3+ Views bilat (11/01/2024 3:36 PM EDT) Anatomical Region Laterality Modality Lower Extremities, Foot Bilateral Computed Radiography Narrative 11/01/2024 5:33 PM EDT Right foot ??3 views No fracture. No radiopaque foreign joint spaces normal Slight thickening and retro and infracalcaneal spurring Foot position rectus Normal talus navicular position normal calcaneal inclination normal symes line talus navicular joint to calcaneal cuboid joint Left foot 3 views No fracture. No radiopaque foreign joint spaces normal Slight thickening and retro and infracalcaneal spurring Foot position rectus Normal talus navicular position normal calcaneal inclination normal symes line talus navicular joint to calcaneal cuboid joint us Leeroy Lee DPM IMG XR PROCEDURES Final R esult * (ABNORMAL) Lipid panel with reflex to direct LDL (09/24/2024 3:48 PM EST) Cholesterol 159 0 - 200 mg/dL LAB CHEMISTRY METHOD 09/24/2024 7:55 PM [facility] Triglycerides 118 0 - 150 mg/dL LAB CHEMISTRY METHOD 09/24/2024 7:55 PM [facility] HDL 36(L) >=40 mg/dL LAB CHEMISTRY METHOD 09/24/2024 7:55 PM [facility] LDL Calculated 99 0 - 100 mg/dL LAB CHEMISTRY METHOD 09/24/2024 7:55 PM [facility] VLDL Cholesterol Trip 23.6 mg/dL LAB CHEMISTRY METHOD 09/24/2024 7:55 PM [facility] Non HDL Chol. (LDL+VLDL) 123 <145 mg/dL LAB CHEMISTRY METHOD 09/24/2024 7:55 PM [facility] Chol/HDL Ratio 4.4 0.0 - 4.4 LAB CHEMISTRY METHOD 09/24/2024 7:55 PM [facility] Blood Venous blood specimen / Unknown Venipuncture / Unknown 09/24/2024 3:48 PM EST 09/24/2024 7:07 PM EST us Jerome Higgins MD LAB BLOOD ORDERABLES Final R esult [facility] [address] [place] [address], [place] [phone] * (ABNORMAL) Comprehensive metabolic panel (09/24/2024 3:48 PM EST) Sodium 137 133 - 145 mmol/L LAB CHEMISTRY METHOD 09/24/2024 7:55 PM [facility] Potassium 4.0 3.5 - 5.5 mmol/L LAB CHEMISTRY METHOD 09/24/2024 7:55 PM [facility] Chloride 104 96 - 110 mmol/L LAB CHEMISTRY METHOD 09/24/2024 7:55 PM [facility] CO2 26 21 - 32 mmol/L LAB CHEMISTRY METHOD 09/24/2024 7:55 PM [facility] Anion Gap 7 3 - 11 LAB CHEMISTRY METHOD 09/24/2024 7:55 PM [facility] Glucose 118(H) 70 - 100 mg/dL LAB CHEMISTRY METHOD 09/24/2024 7:55 PM [facility] BUN 21 5 - 25 mg/dL LAB CHEMISTRY METHOD 09/24/2024 7:55 PM [facility] Creatinine 0.78 0.70 - 1.30 mg/dL LAB CHEMISTRY METHOD 09/24/2024 7:55 PM [facility] eGFR 122 >=60 mL/min/1. 73m2 LAB CHEMISTRY METHOD 09/24/2024 7:55 PM [facility] Comment:Calculation based on the??Chronic Kidney Disease Epidemiology Collaboration (CKD-EPI) equation refit??without adjustment for race. BUN/Creatinine Ratio 26.9 LAB CHEMISTRY METHOD 09/24/2024 7:55 PM [facility] Calcium 9.2 8.5 - 10.5 mg/dL LAB CHEMISTRY METHOD 09/24/2024 7:55 PM [facility] AST (SGOT) 20 10 - 42 unit/L LAB CHEMISTRY METHOD 09/24/2024 7:55 PM [facility] ALT (SGPT) 58 10 - 60 unit/L LAB CHEMISTRY METHOD 09/24/2024 7:55 PM [facility] Alkaline Phosphatase 61 42 - 121 unit/L LAB CHEMISTRY METHOD 09/24/2024 7:55 PM [facility] Total Protein 7.5 6.0 - 8.0 g/dL LAB CHEMISTRY METHOD 09/24/2024 7:55 PM [facility] Albumin 4.2 3.2 - 5.0 g/dL LAB CHEMISTRY METHOD 09/24/2024 7:55 PM [facility] Total Bilirubin 0.6 0.0 - 1.4 mg/dL LAB CHEMISTRY METHOD 09/24/2024 7:55 PM [facility] Blood Venous blood specimen / Unknown Venipuncture / Unknown 09/24/2024 3:48 PM EST 09/24/2024 7:07 PM EST Jerome Higgins MD LAB BLOOD ORDERABLES Final R esult [facility] [address] [place] [address], [place] [phone] * Depression Screening (02/13/2024) Pathologist [facility] Depression Screening abstracted Historical Provider HEALTH MAINTENANCE Final Result from Last 3 Months or Most Recently Relevant to Health Maintenance Insurance [facility] PL[facility] Care Teams Mechanical Technologist Relationship Specialty Start Date End Date Jeane Harper MD [address] [place] [address] Dr Zari [place] [phone] PCP - General 12/05/23
== END 2024-11-25 15:43 | disposition home or self-care (01) ==
LOC: HO.RHE 15:06
PROVIDERS: PCP Internal Medicine; Visit Provider Student in an Organized Health Care Education/Training Program
DX: M1A.0790 Idiopathic chronic gout, unspecified ankle and foot, without tophus (tophi) (principal); M17.0 Bilateral primary osteoarthritis of knee; Z51.81 Encounter for therapeutic drug level monitoring; Z79.899 Other long term (current) drug therapy
CPT/HCPCS: 99214; G2211

== ENCOUNTER 2024-11-25 15:05 | Outpatient (REF) | payer OTHER, SELFPAY ==
[2024-11-25 15:59] LABS: MANUAL DIFF FLAG NO
[2024-11-25 17:15] LABS: Basophils Percent Auto 0.4 % (0-2); Eosinophils Absolute Auto 0.2 X10*3/uL (0.0-0.4); Eosinophils Percent Auto 3.1 % (0-4); Hematocrit 41.3 % (42.0-52.0); Hemoglobin 14.3 g/dl (14.0-18.0); Imm Gran Abs Auto 0.02 X10*3/uL (0.00-0.03); Imm Gran Pct Auto 0.3 % (0.0-0.4); Lymphocytes Absolute Auto 2.5 X10*3/uL (1.2-4.9); Lymphocytes Percent Auto 34.1 % (20-40); Mean Corpuscular HGB Conc 34.6 g/dl (31.0-36.0); Mean Corpuscular Hemoglobin 28.8 pg (27.0-33.0); Mean Corpuscular Volume 83.3 fL (80.0-98.0); Mean Platelet Volume 10.1 fL (9.4-12.4); Monocytes Absolute Auto 0.5 X10*3/uL (0.1-1.2); Monocytes Percent Auto 7.1 % (2-11); Platelet Count 316 X10*3/uL (160-400); Red Blood Count 4.96 X10*6/uL (4.60-5.80); Red Cell Distribution Width 12.6 % (11.0-16.0); White Blood Count 7.4 X10*3/uL (4.8-10.8)
--- OUTSIDE RECORDS SUMMARY | 2024-11-25 17:23 | XMS_ITS | Clinical Summary ---
Author Organization [employer] Address [address] [place] [address] 7 [place] [address] Care Team Providers Care Biofuels Research Scientist Name Role Phone Unavailable Primary Care Provider [...]
--- OUTSIDE RECORDS SUMMARY | 2024-11-25 17:23 | XMS_ITS | Encounter Summary ---
Author Organization [employer] [facility] Address [address] [place] [address] 7 [place] [address] Care Team Providers Care Insole Tacker Name Role Phone Unavailable Primary Care Provider [...]
--- OUTSIDE RECORDS SUMMARY | 2024-11-25 17:23 | XMS_ITS | Clinical Summary ---
Author Organization 175 [facility] Address [address] [place] [address] Phone Care Team Providers Care Automobile Rental Agent Name Role Phone Jeane Harper MD Primary Care Provider [phone] Allergies No known active allergies Medications lisdexamfetamin [...] 3:15 PM EDT Office Visit Orthopedic Surgery [facility] 250 175 [facility] [address] [place] [phone] Leeroy Lee, DPM Plantar fascial fibromatosis (Primary Dx); Follow-up exam; Tendinitis of right ankle; Tendinitis of left ankle 09/20/2024 2:30 PM EST Consult Bariatric Surgery - [place] [address] [address] Jerome Higgins MD Class 3 severe obesity due to excess calories without serious comorbidity with body mass index (BMI) of 45.0 to 49.9 in adult (CMS/HCC V24, CMS/HCC V28) (Primary Dx); Obesity (BMI 35.0-39.9 without comorbidity) 09/20/2024 Telephone Bariatric Surgery - [place] [address] [address] Jerome Higgins MD from Last [...] MD LAB BLOOD ORDERABLES Final R esult [facility] [address] [place] [address], [place] [phone] * (ABNORMAL) Comprehensive metabolic panel (09/24/2024 3:48 [...] MD LAB BLOOD ORDERABLES Final R esult [facility] [address] [place] [address], [place] [phone] * Depression Screening (02/13/2024) Pathologist [facility] Depression Screening abstracted Historical Provider HEALTH MAINTENANCE Final Result from Last 3 Months or Most Recently Relevant to Health Maintenance Insurance [facility] PLAN Care Teams Automobile Rental Agent Relationship Specialty Start Date End Date Jeane Harper MD [address] [place] [address] Dr Zari [place] [phone] PCP - General 12/05/23
[2024-11-25 17:41] LABS: Alanine Aminotransferase 108 U/L (0-40); Albumin Level 4.5 g/dL (3.5-5.0); Alkaline Phosphatase 62 U/L (39-117); Anion Gap 13 (12-20); Aspartate Amino Transferase 52 U/L (5-37); Bilirubin Total 0.4 mg/dL (0.0-1.0); Blood Urea Nitrogen 18 mg/dL (9-16); C Reactive Protein 0.54 mg/dL (< or = 0.50); Calcium 9.1 mg/dL (8.4-10.2); Carbon Dioxide 27 mmol/L (22-29); Chloride 104 mmol/L (96-108); Estimated Glomerular Filt Rate > 60; Glucose Random 128 mg/dL (60-115); Potassium 4.1 mmol/L (3.3-5.1); Sodium 140 mmol/L (135-145); Total Protein 7.3 g/dL (6.5-8.0); Uric Acid 7.7 mg/dL (3.4-7.0)
[2024-11-25 18:50] LABS: Erythrocyte Sedimentation Rate 13 MM/HR (0-15)
== END 2024-11-25 15:06 | disposition home or self-care (01) ==
LOC: HO.LAB 15:05
PROVIDERS: PCP Internal Medicine; Visit Provider Student in an Organized Health Care Education/Training Program
DX: M1A.0790 Idiopathic chronic gout, unspecified ankle and foot, without tophus (tophi) (principal); M17.0 Bilateral primary osteoarthritis of knee; Z79.899 Other long term (current) drug therapy; Z51.81 Encounter for therapeutic drug level monitoring
CPT/HCPCS: 36415; 80053; 84550; 85025; 85652; 86140; 99212

== ENCOUNTER 2024-11-26 14:47 | Outpatient (AMB) | payer OTHER, SELFPAY ==
--- OUTSIDE RECORDS SUMMARY | 2024-11-26 14:49 | XMS_ITS | Encounter Summary ---
Author Organization [employer] [facility] Address [address] [place] [address] 7 [place] [address] Care Team Providers Care Brake Engineer Name Role Phone Unavailable Primary Care Provider [...]
--- OUTSIDE RECORDS SUMMARY | 2024-11-26 14:49 | XMS_ITS | Clinical Summary ---
Author Organization [employer] Address [address] [place] [address] 7 [place] [address] Care Team Providers Care Guide Visitor Name Role Phone Unavailable Primary Care Provider [...]
--- OUTSIDE RECORDS SUMMARY | 2024-11-26 14:49 | XMS_ITS | Clinical Summary ---
Author Organization 175 [facility] Address 175 [place] [address] Phone Care Team Providers Care Ware Tester Name Role Phone Jeane Harper MD Primary Care Provider [phone] Allergies No known active allergies Medications lisdexamfetamin [...] 3:15 PM EDT Office Visit Orthopedic Surgery [facility] 250 175 [facility] [address] [place] [address] Leeroy Lee, DPM Plantar fascial fibromatosis (Primary Dx); Follow-up exam; Tendinitis of right ankle; Tendinitis of left ankle 09/20/2024 2:30 PM EST Consult Bariatric Surgery - [place] [address] [address] Jerome Higgins MD Class 3 severe obesity due to excess calories without serious comorbidity with body mass index (BMI) of 45.0 to 49.9 in adult (CMS/HCC V24, CMS/HCC V28) (Primary Dx); Obesity (BMI 35.0-39.9 without comorbidity) 09/20/2024 Telephone Bariatric Surgery - [place] [address] [address] Jerome Higgins MD from Last [...] mg/dL LAB CHEMISTRY METHOD 09/24/2024 7:55 PM [facility] Triglycerides 118 0 - 150 mg/dL LAB CHEMISTRY METHOD 09/24/2024 7:55 PM [facility] HDL 36(L) >=40 mg/dL LAB CHEMISTRY METHOD 09/24/2024 7:55 PM [facility] LDL Calculated 99 0 - 100 mg/dL LAB CHEMISTRY METHOD 09/24/2024 7:55 PM [facility] VLDL Cholesterol Trip 23.6 mg/dL LAB CHEMISTRY METHOD 09/24/2024 7:55 PM [facility] Non HDL Chol. (LDL+VLDL) 123 <145 mg/dL LAB CHEMISTRY METHOD 09/24/2024 7:55 PM [facility] Chol/HDL Ratio 4.4 0.0 - 4.4 LAB CHEMISTRY METHOD 09/24/2024 7:55 PM [facility] Blood Venous blood specimen / Unknown Venipuncture / Unknown 09/24/2024 3:48 PM EST 09/24/2024 7:07 PM EST us Jerome Higgins MD LAB BLOOD ORDERABLES Final R esult [facility] [address] [place] [address], [place] [phone] * (ABNORMAL) Comprehensive metabolic panel (09/24/2024 3:48 PM EST) Sodium 137 133 - 145 mmol/L LAB CHEMISTRY METHOD 09/24/2024 7:55 PM [facility] Potassium 4.0 3.5 - 5.5 mmol/L LAB CHEMISTRY METHOD 09/24/2024 7:55 PM [facility] Chloride 104 96 - 110 mmol/L LAB CHEMISTRY METHOD 09/24/2024 7:55 PM [facility] CO2 26 21 - 32 mmol/L LAB CHEMISTRY METHOD 09/24/2024 7:55 PM [facility] Anion Gap 7 3 - 11 LAB CHEMISTRY METHOD 09/24/2024 7:55 PM [facility] Glucose 118(H) 70 - 100 mg/dL LAB CHEMISTRY METHOD 09/24/2024 7:55 PM [facility] BUN 21 5 - 25 mg/dL LAB CHEMISTRY METHOD 09/24/2024 7:55 PM [facility] Creatinine 0.78 0.70 - 1.30 mg/dL LAB CHEMISTRY METHOD 09/24/2024 7:55 PM [facility] eGFR 122 >=60 mL/min/1. 73m2 LAB CHEMISTRY METHOD 09/24/2024 7:55 PM [facility] Comment:Calculation based on the??Chronic Kidney Disease Epidemiology Collaboration (CKD-EPI) equation refit??without adjustment for race. BUN/Creatinine Ratio 26.9 LAB CHEMISTRY METHOD 09/24/2024 7:55 PM [facility] Calcium 9.2 8.5 - 10.5 mg/dL LAB CHEMISTRY METHOD 09/24/2024 7:55 PM [facility] AST (SGOT) 20 10 - 42 unit/L LAB CHEMISTRY METHOD 09/24/2024 7:55 PM [facility] ALT (SGPT) 58 10 - 60 unit/L LAB CHEMISTRY METHOD 09/24/2024 7:55 PM [facility] Alkaline Phosphatase 61 42 - 121 unit/L LAB CHEMISTRY METHOD 09/24/2024 7:55 PM [facility] Total Protein 7.5 6.0 - 8.0 g/dL LAB CHEMISTRY METHOD 09/24/2024 7:55 PM [facility] Albumin 4.2 3.2 - 5.0 g/dL LAB CHEMISTRY METHOD 09/24/2024 7:55 PM [facility] Total Bilirubin 0.6 0.0 - 1.4 mg/dL LAB CHEMISTRY METHOD 09/24/2024 7:55 PM [facility] Blood Venous blood specimen / Unknown Venipuncture / Unknown 09/24/2024 3:48 PM EST 09/24/2024 7:07 PM EST Jerome Higgins MD LAB BLOOD ORDERABLES Final R esult [facility] [address] [place] [address], [place] [phone] * Depression Screening (02/13/2024) Pathologist [facility] Depression Screening abstracted Historical Provider HEALTH MAINTENANCE Final Result from Last 3 Months or Most Recently Relevant to Health Maintenance Insurance [facility] [place] [address] Care Teams Ware Tester Relationship Specialty Start Date End Date Jeane Harper MD [address] [place] [address] Dr Zari [place] [phone] PCP - General 12/05/23
--- NOTE | 2024-11-26 14:56 | AM.OFFWIN_ITS ---
Intake Vital Signs 11/26/24 14:57 Weight 342 lb BP 116/78 Blood Pressure Location Rt brachial Position Sitting Pulse 88 Pulse Source Pulse Oximeter Pulse Oximetry (%) 98 Oxygen Delivery Method Room Air Intake Visit Reasons: EP wax removal Intake Note: Patient here for left ear possible ear wax/pain. Patient Tobacco Use Status: Never used Tobacco Allergies talcum podwer Allergy (Intermediate, Uncoded 11/26/24 14:57) Rash Do you need a note to return to daycare/school/sports/work: No HPI HPI Comments History of Present Illness Details 33 year old male c/o few weeks of worsen ing - left ear intermittent pain, feels like drainage but none - was told to use wax softener, but ins didn't cover it so he didn't get it - hearing was reduced now improved - admits to long hx of ear infections PFSH Medical History (Updated 11/26/24 @ 15:16 by Mirta Goldberg PA-C) Gout Social History (Updated 03/26/24 @ 13:04 by Marvin Huerta) Alcohol intake: current Alcohol intake frequency: holidays/special occasions only Patient Tobacco Use Status: Never used Tobacco Substance Use Type: Marijuana Current occupational status: unemployed Review of Systems Const All systems reviewed & are unremarkable except as noted in HPI and below Physical Exam Vital Signs: Last Vital Signs Pulse 88 11/26/24 14:57 BP 116/78 11/26/24 14:57 Pulse Ox 98 11/26/24 14:57 Oxygen Delivery Method Room Air 11/26/24 14:57 Const General: cooperative, healthy appearing, comfortable and no acute distress Orientation/consciousness: patient oriented x3 HEENT Head: Yes normal to inspection Ears: TM normal on the right, mastoids normal, Abnormal EAC present cerumen im paction on the left and unable to visualize TM (cerumen blockage) on the left General nose exam: Normal external nose present Face and sinus: Yes normal facial exam Resp Effort & Inspection: normal respiratory effort and able to speak in complete sentences Neuro General: patient oriented x3 Office Procedures Cerumen Removal From which ear canal was the cerumen removed: left Removal: irrigation Notes: patient tolerated procedure well, no complications and ear canal clear [id number] Irrigation/Lavage Assessment & Plan Assessment & Plan (1) Left ear impacted cerumen: Code(s): H61.22 - Impacted cerumen, left ear Plan: Patient presented with cerumen impaction, left ear with full was flushed and irrigated with success. Ear canals clean, patient reports improved hearing and less pain. After removal, tympanic membrane of the left ear looked completely normal. Orders: Orders AMB Cerumen Removal Today H61.22 - Impacted cerumen, left ear Coding Level of Care Code New Pt Level 3 (43348) Diagnoses Left ear impacted cerumen H61.22 CPT Codes Office Procedure - CPT: 32582-Zrc Irrigation/Lavage ([id number])
[2024-11-26 14:57] VITALS: BP 116/78; PULSE 88; O2SAT 98
== END 2024-11-26 16:21 | disposition home or self-care (01) ==
PROVIDERS: PCP Internal Medicine; Visit Provider Physician Assistant
DX: H61.22 Impacted cerumen, left ear (principal)

== ENCOUNTER → 2024-11-26 14:47 | Outpatient (BNVA) | payer OTHER, SELFPAY | PROVIDERS: PCP Internal Medicine; Visit Provider Physician Assistant | DX: H61.22 Impacted cerumen, left ear (principal) | CPT/HCPCS: 69209; 99202 ==

== ENCOUNTER 2024-12-17 14:19 | Outpatient (REF) | payer OTHER, SELFPAY ==
--- OUTSIDE RECORDS SUMMARY | 2024-12-17 14:22 | XMS_ITS | Data Portability ---
Author Organization [place] - [facility] [address] Address [address] [place] [address] Assessment No assessment recorded. Plan of Treatment [...] Address Organization Details Recorded Time Hypertensive disorder 73866049 Active Mana Lila null, [place] - [facility] 4 14:07:10 Anxiety 63848789 Active Mana Lila null, [place] - [facility] 4 14:07:16 Depressive disorder 25876107 Active Mana Lila null, [place] - [facility] 4 14:07:21 Attention deficit hyperactivity disorder 664769379 Active Mana Lila null, [facility] - [facility] [...] Last Updated DateTime 180.34 cm 46.9 kg/m2 900010. 04 g 98 % 98 % 71 /min 18 /min 98.7 [degF] 104 mm[Hg] 63 mm[Hg] Mana Lila [place] - [facility] 14:09:43 Social History Question Answer Notes LastModified by [employer] Details LastModified Time Tobacco Smoking Status Never Smoker Mana Lila null, [place] - [facility] 03/09/2024 14:07:40 Which Illicit Or Recreational Drugs Have You Used? Marijuana Information not available 03/09/2024 Have You Recently Traveled Abroad? No Information not available 03/09/2024 Sex: Unknown Functional Status Question Answer Note LastModified by [employer] Details LastModified Time Do you use any illicit or recreational drugs? Yes Information not available 03/09/2024 Do you or have you ever used any other forms of tobacco or nicotine? No Information not available 03/09/2024 What is your level of alcohol consumption? None Information not available 03/09/2024 Are you currently employed? No Information not available 03/09/2024 Mental Status None recorded. Family History Nothing [...] SNOMED-CT Code Diagnosis ICD10 Code Diagnosis Note [id number] [address] [place] [address] 02/26/2022 15:26:14 02/26/2022 16:37:44 [id number] ELEANOR HIGH [address] [place] [address] 03/09/2024 13:58:32 03/09/2024 14:14:45 [place] of skin 886819648 R22.9 You were today for concern about [...] Recorded Advance Directives Directive None Recorded Payers Insurance Date Sequence Insurance Name Policy Number Policy Stark Covered Member ID Stark Member ID Guarantor Name 03/09/2024 1 [facility] PLAN (MEDICAID HMO) [id number] Loco Acosta [id number] Loco Acosta Notes Date Note Type Note Provider Name and Address Organization Details Recorded Time 03/09/2024 text/html 33 y/o male here with tender bump on his L chest, under breast area, has lost a lot of weight recently, and wants to make sure there isn't anything abnormal ELEANOR Ibarra [address], [place], [address], [place] - [facility] 03/09/2024 14:20:28
[2024-12-17 16:59] LABS: Creatinine Urine 110.56 mg/dL
== END 2024-12-17 14:20 | disposition home or self-care (01) ==
LOC: HO.LAB 14:19
PROVIDERS: PCP Internal Medicine; Visit Provider Student in an Organized Health Care Education/Training Program
DX: M1A.0790 Idiopathic chronic gout, unspecified ankle and foot, without tophus (tophi) (principal)
CPT/HCPCS: 82570; 84560

== ENCOUNTER 2025-03-14 14:59 | Outpatient (AMB) | payer OTHER, SELFPAY ==
--- NOTE | 2025-03-14 15:01 | MHC.OFFVIS ---
Vital Signs 03/14/25 15:03 Height 5 ft 11 in Weight 326 lb 4.546 oz BMI 45.5 BP 146/71 H Blood Pressure Location Lt brachial Position Sitting Pulse 91 Intake Visit Reasons: Gastritis / Colitis Intake Note: Loco presents in the office as a new patient for gastritis and colitis. CC: States that he had fatty liver show up on a scan in the pasted - states that he has had inflmation in his bowels. IBS runs in the family. Father had polyps and brother has IBS. Geothermal Powerplant Mechanic Required: No Allergies talcum podwer Allergy (Intermediate, Uncoded 03/14/25 15:16) Rash HPI Comments Details: 34 y.o M with PMH of who is here for chronic diarrhea. Pt reports intermittent GI sx ongoing x years. Reports had blood in stool with abd and rectal discomfort a few months ago. This is a recurrent issue, started a few years ago. Each episode lasts almost a week. Stools are loose during this time. No fevers. Assoc with bloating. During this episode appetite is ok. No N.V. Started zepbound 2 months ago and has lost almost 20 lbs since then. 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 pat grandfather 88 y.o CRC mat uncle dx at 44 y.o [facility] Medical History Gout Family History Paternal Uncle Colon cancer Maternal Uncle Colon cancer Family/Other Colon cancer Brother IBS (irritable bowel syndrome) Father Colon polyp Gouty arthritis Paternal Grandfather Gout Rheumatoid arthritis Social History Alcohol intake: current Alcohol intake frequency: holidays/special occasions only Patient Tobacco Use Status: Never used Tobacco Substance Use Type: Marijuana Current occupational status: unemployed Physical Exam Vital Signs: Last Vital Signs Pulse 91 03/14/25 15:03 BP 146/71 H 03/14/25 15:03 BMI result Body Mass Index 45.5 Assessment & Plan Assessment & Plan (1) Chronic diarrhea: Code(s): K52.9 - Noninfective gastroenteritis and colitis, unspecified Category: Medical (2) Malabsorption: Code(s): K90.9 - Intestinal malabsorption, unspecified Category: Medical (3) Blood in stool: Code(s): K92.1 - Melena Category: Medical Plan Ddx include IBD, malabsoprtion such as celiac, SIBO, enteropathy; IBS with hemorrhoidal bleeding. Will check labs and stool studies as below. Given rectal bleeding also obtaining CBC and iron panel. Plan: - Labs as below - Decision for egd/colo guided by results Close follow up 6 weeks Orders: Orders IRON PROFILE 03/14/25 K92.1 - Melena Immunoglobulin A 03/14/25 K92.1 - Melena Vitamin D 25-OH Total 03/14/25 K90.9 - Intestinal malabsorption, unspecified TSH reflex Free T4 03/14/25 K52.9 - Noninfective gastroenteritis and colitis, unspecified Complete Blood Count no Diff 03/14/25 K92.1 - Melena Comprehensive Met. Panel 03/14/25 K92.1 - Melena Ferritin 03/14/25 K92.1 - Melena Transglutaminase IgA 03/14/25 K92.1 - Melena Calprotectin, Fecal 03/14/25 K92.1 - Melena C Reactive Protein 03/14/25 K92.1 - Melena Vitamin B12 and Folate 03/14/25 K90.9 - Intestinal malabsorption, unspecified Coding Level of Care Code New Pt Level 4 (67632) Complex EM visit Add On G2211 Diagnoses Chronic diarrhea K52.9 Malabsorption K90.9 Blood in stool K92.1
[2025-03-14 15:03] VITALS: BP 146/71; PULSE 91; BMI 45.5
--- OUTSIDE RECORDS SUMMARY | 2025-03-14 15:39 | XMS_ITS | Encounter Summary ---
Author Organization [facility] Address [address] [place] [address] Care Team Providers Care Paste Thinner Name Role Phone Jeane Harper MD Primary Care Provider [phone] Reason for Visit * Reason Onset Date Comments Med Refill 03/11/2025 Zepbound Encounter Details Date Type Department Care Team (Late Contact Info) Description 03/11/2025 Telephone Bariatric Surgery [facility] [address] [phone] Jerome Higgins MD [address] [address] Med Refill (Zepbound) Social History Tobacco Use Types Packs/Day Years Used Date Smoking Tobacco: Never Assessed Sex and Gender Information Value Date Recorded Sex Assigned at Not on file Legal Sex Male 11:04 AM EDT Gender Identity Not on file Sexual Orientation Not on file documented as of this encounter Progress Notes * Bella Cortez - 03/11/2025 12:16 PM EDT Patient did well on Zepbound 5 mgs and would like a refill with titration. If appropriate, please send script for Zepbound 7.5 mgs to their pharmacy. The patient does have a follow up in 08/09/2025 documented in this encounter Plan of Treatment Upcoming Encounters Date Type Department Care Team ([facility] Contact Info) Description 08/09/2025 9:45 AM EST Office Visit Bariatric Surgery [facility] [address] [phone] Jerome Higgins MD 175 [facility] [address] [place] [address] documented as of this encounter Visit Diagnoses Not on filedocumented in this encounter Care Teams Paste Thinner Relationship Specialty Start Date End Date Jeane Harper MD [address] [place] [address] [place] [address] PCP - General 12/05/23 documented as of this encounter
--- OUTSIDE RECORDS SUMMARY | 2025-03-14 15:40 | XMS_ITS | Clinical Summary ---
Author Organization [facility] Address [address] [place] [address] Phone Care Team Providers Care Medical Services Coordinator Name Role Phone Jeane Harper MD Primary Care Provider Allergies No known active allergies Medications TURMERIC ROOT EXTRACT ORAL Take by mouth. Active chlorhexidine (PERIDEX) 0.12 % solution Use as directed 15 mL in the mouth or throat 2 (two) times a day. 120 mL 2 Active ondansetron (ZOFRAN-ODT) 4 MG disintegrating tablet Take 1 tablet (4 mg total) by mouth every 8 (eight) hours as needed for nausea. 15 tablet 3 Active oxyCODONE 5 MG immediate release tablet Take 1 tablet (5 mg total) by mouth every 6 (six) hours as needed for pain (specific location in comments). Partial fill ok 8 tablet 4 Active Active Problems Problem Noted Date Diagnosed Date Elevated blood pressure read ing without diagnosis of hypertension 12/17/2017 Assessment & Plan (12/18/2017 6:05 AM EDT): Blood pressure reading measured today by the MA was 160/96 mmHg. He tries to be less stressful. His blood pressure reading during the last visit was normal. Improved upon recheck. Other abnormal glucose 11/27/2017 Morbid obesity with BMI of 50.0-59.9, adult 09/26 Assessment & Plan (12/18/2017 6:04 AM EDT): Reports weight loss as he does intermittent fasting for 2 days in a row. States that this is the second time he is doing intermittent fasting. Goes out hiking with his friends in the afternoon. Ate pizza as he was stressed out 2 days ago; otherwise, eats healthy food. Advised to stay active and follow a healthy diet. Assessment & Plan (10/23/2017 7:28 AM EDT): Intends to lose weight. Advised to consider intermittent fasting under supervision for weight loss. Informative handouts provided. Recommended to do swimming, biking and walking, and avoid heavy weight exercise. Encouraged to do water fasting for 3 to 5 days. Suggested to watch documentaries as 'Science of fasting'. Update me if he considers fasting. Healthcare maintenance 10/22/2017 Overview (12/10/2017): Health Maintenance Due Topic Date Due PNEUMOCOCCAL VACCINES (19-64 Years Medium Risk) (1 of 1 - PPSV23) 12/08/2010 DIABETIC EYE EXAM 10/28/2017 URINE MICROALBUMIN/CREATININE RATIO 10/28/2017 Assessment & Plan (10/23/2017 7:30 AM EDT): Ophthalmology status: Advised to follow up with parts control clerk regularly. Immunization status: Due for tetanus and influenza vaccine. Td vaccine will be given today. Encouraged to get influenza vaccine next year. Lab work: Concerned about his cholesterol levels. Obtain blood work including CBC, lipid panel, renal panel, thyroid panel, HbA1c, HIV screening and hepatitis C screening. CDC guidelines explained. Follow up: Follow up in 1 month. Grief reaction 10/22/2017 Assessment & Plan (12/18/2017 6:05 AM EDT): Reports stress due to his grandfather's health who fell down 2 days ago and his grandmother had a stroke last night who has a history of 2 types of cancers. Had an episode of severe stress headache last night. Supportive care and listening provided. Assessment & Plan (10/23/2017 7:31 AM EDT): Reports depression due to recent of his friend. Mentions getting enough support. Supportive listening and counseling provided. Immunizations Immunization Administration Dates Next Due [id number] FORMULATION 05/24/2009 Influenza, Unspecified Formulation 05/24/2009 Tdap 10/22/2017 Social History Tobacco Use Types Packs/Day Years Used Date Smoking Tobacco: Never Smokeless Tobacco: Never Education Answer Date Recorded Are you interested in more education? Not on roney e 11/24/2022 Are you concerned about learning? Not on file 11/24/2022 No 11/24/2022 No 11/24/2022 Digital Access Answer Date Recorded No 12/22/2022 No 12/22/2022 No 12/22/2022 Reliable internet access at home? Not on file 12/22/2022 Device with a working camera? Not on file Intimate Partner Violence Answer Date R ecorded Are you denied basic needs s uch as food, clothing, or medical care? No 08/07/2023 In the past 12 months have y ou been in a relationship with a person who hurts, threatens, or tries to control you? No 08/07/2023 Are you denied basic needs s uch as food, clothing, or medical care? No 08/07/2023 In the past 12 months have y ou been in a relationship with a person who hurts, threatens, or tries to control you? No 08/07/2023 Sex and Gender Information Value Date Recorded Sex Assigned at Male 02/26/2022 5:16 PM EDT Legal Sex Male 5:17 PM EST Gender Identity Male 02/26/2022 5:16 PM EDT Sexual Orientation Straight 02/26/2022 5: 16 PM EDT Last Filed Vital Signs Vital Sign Reading Time Taken Comments Blood Pressure 155/98 02/24/2024 12:56 PM EDT Pulse 70 02/24/2024 12:56 PM EDT Temperature 36.6 C (97.9 F) 02/24/2024 12:56 PM EDT Respiratory Rate 18 02/24/2024 12:56 PM EDT Oxygen Saturation 100% 02/24/2024 12:56 PM EDT Inhaled Oxygen Concentration - - Weight 154.7 kg (341 lb) 02/24/2024 12:56 PM EDT Height 180.3 cm (5' 11 ) 02/24/2024 12:56 PM EDT Body Mass Index 47.56 02/24/2024 12:56 PM EDT Plan of Treatment Health Maintenance Due Date Last Done Comments DEPRESSION SCREENING 11/26/2018 11/26/2017, 10/22/2017 COVID-19 VACCINE (2 - 2023-2 5 season) 2024 11/02/2020 Adult Td,Tdap Booster 10/23/2027 10/22/2017 HEPATITIS C SCREENING Completed 10/22/2017 HIV ONE-TIME SCREENING (18-6 5 YEARS) Completed 10/22/2017 SMOKING STATUS SCREENING (On ce After 26 Yrs) Completed 12/17/2017 HEPATITIS A VACCINES Aged Out No long er eligible based on patient's age to complete this topic HIB VACCINES Aged Out No longer eligi ble based on patient's age to complete this topic MENINGOCOCCAL VACCINES (ACWY) Aged Out No longer eligible based on patient's age to complete this topic MENINGOCOCCAL VACCINES (B) Aged Out N o longer eligible based on patient's age to complete this topic PNEUMOCOCCAL VACCINES (0-49 years) Aged Out No longer eligible b ased on patient's age to complete this topic Medical Devices Not on file Procedures Procedure Name Priority Date/Time Associated Diagnosis Comments HEPATITIS C ANTIBODY, QUALITATIVE Routine 10/22/2017 10:52 AM EDT Annual physical exam from Last 3 Months or Most Recently Relevant to Health Maintenance Results * Hepatitis C antibody, qualitative (10/22/2017 10:52 AM EDT) HCV ANTIBODY Negative Negative [facility] Comment:Antibodies to HCV no t detected. Does not exclude the possibility of exposure to HCV. 10/22/2017 10:5 2 AM EDT 10/22/2017 11:42 AM EDT Ana Paula ORO LAB BLOOD ORDERABL ES Final Result [facility] [address] [place] [address] from Last 3 Months or Most Recently Relevant to Health Maintenance [facility] [employer] (deja mi) [facility] Care Teams Medical Services Coordinator Relationship Specialty Start Date End Date Jeane Harper MD [address] [place] [address] [place] [phone] PCP - General Internal Medicine 08/15/23 Additional Source Comments The information contained in this document represents components of the legal health record. It is not the complete legal health record.[facility]
--- OUTSIDE RECORDS SUMMARY | 2025-03-14 15:40 | XMS_ITS | Encounter Summary ---
Author Organization [email or web address] [facility] Address [address] [place] [address] [address] [place] [address] Care Team Providers Care Shotgun Shell Assembly Machine Adjuster Name Role Phone Unavailable Primary Care Provider [...]
== END 2025-03-14 15:57 | disposition home or self-care (01) ==
LOC: HO.HGI 14:59
PROVIDERS: PCP Internal Medicine; Visit Provider Internal Medicine
DX: K52.9 Noninfective gastroenteritis and colitis, unspecified (principal); K90.9 Intestinal malabsorption, unspecified; K92.1 Melena
CPT/HCPCS: 99204

== ENCOUNTER → 2025-03-14 14:59 | Outpatient (BNVA) | payer OTHER, SELFPAY | PROVIDERS: PCP Internal Medicine; Visit Provider Internal Medicine | DX: K52.9 Noninfective gastroenteritis and colitis, unspecified (principal); K90.9 Intestinal malabsorption, unspecified; K92.1 Melena | CPT/HCPCS: 99202 ==

== ENCOUNTER 2025-04-29 12:36 | Outpatient (AMB) | payer OTHER, SELFPAY ==
--- NOTE | 2025-04-29 12:41 | MHC.OFFVIS ---
Vital Signs 04/29/25 12:48 Height 5 ft 11 in Weight 326 lb BMI 45.5 BP 142/94 H Blood Pressure Location Lt brachial Position Sitting Pulse 89 Pulse Source Pulse Oximeter Pulse Oximetry (%) 99 Oxygen Delivery Method Room Air Intake Visit Reasons: knee pain Intake Note: Patient presents for knee pain follow up. Allergies talcum podwer Allergy (Intermediate, Uncoded 03/14/25 15:16) Rash HPI Comments Details: Patient is a 34-year-old morbidly obese male with depression/anxiety, hypertension and non crystal proven gout here today for follow up Interval History: Patient last seen 11/25/24 with me. - On Allopurinol 400mg and colchicine 0.6mg daily - Doing well tolerating meds - Complaining of left heel pain for the past few days - Diagnosed with achilles tendonitis and given a steroid taper to speed recovery - Uric acid not at goal - Allopurinol increased to 600mg Patient last seen 11/25/24 with me. - On Allopurinol 600mg and colchicine 0.6mg daily - Responded well to the prednisone - No further gout flares - Had an episode of left wrist pain and swelling with associated numbness of the lateral 3 fingers - Started diclofenac gel for feet from metal plater, which has been helping - Saw GI for evaluation of blood in stool Rheumatologic History: Presented with recurrent monoarticular arthritis involving the 1st MTP, ankle as well as foot. Presumed diagnosis of gout. Started on allopurinol Had an episode of achilles tendonitis 11/2024 responded to prednisone Current Rheumatology Medication(s): Allopurinol 600mg daily Colchicine 0.6 mg daily [facility] Medical History Gout Family History Paternal Uncle Colon cancer Maternal Uncle Colon cancer Family/Other Colon cancer Brother IBS (irritable bowel syndrome) Father Colon polyp Gouty arthritis Paternal Grandfather Gout Rheumatoid arthritis Social History Alcohol intake: current Alcohol intake frequency: holidays/special occasions only Patient Tobacco Use Status: Never used Tobacco Substance Use Type: Marijuana Current occupational status: unemployed Review of Systems Const Details: Review of Systems Constitutional: Denies fever, chills, weight loss ENT: Denies vision changes, eye pain or eye redness, dental caries, dry mouth GI: Denies nausea, vomiting, diarrhea, abdominal pain, change in BM Pulm: Denies SOB, HUTCHINS, hemoptysis, wheezing Cards: Denies chest pain, palpitations Skin: Denies Raynaud's, rash, nail changes, photosensitivity, [employer]: Denies headaches, weakness, paresthesias, recurrent falls MSK: as per HPI All other systems reviewed and are unremarkable except noted above Physical Exam Exam Exam: Vital signs reviewed Physical Examination CONSTITUITIONAL Patient alert and cooperative. Well appearing and in no apparent painful distress HEENT Conjunctiva and sclera clear. No lymphadenopathy. CHEST/RESPIRATORY SYSTEM Normal respiratory effort and able to speak in complete sentences. Clear to auscultation bilaterally. No crackles, rales, rhonchi, wheezes heard. CARDIAC SYSTEM Regular rate and rhythm. S1 and S2 heard no murmurs. Radial pulses intact bilaterally MSK Hands Right Hand: Able to make a fist. No swelling or tenderness to palpation of the MCPs, PIPs or DIPs. Left Hand: Able to make a fist. No swelling or tenderness to palpation of the MCPs, PIPs or DIPs. Bilateral 1st CMC positive grind test Wrists Right Wrist: Full ROM to flexion and extension. No swelling or TTP Left Wrist: Full ROM to flexion and extension. No swelling or TTP Negative Phalen's test. Did note pain in the central wrist joint Elbows Right Elbow: Full ROM. No swelling or TTP. No TTP of the medial epicondyle. No TTP of the lateral epicondyle Left Elbow: Full ROM. No swelling or TTP. No TTP of the medial epicondyle. No TTP of the lateral epicondyle Shoulders Right shoulder: Full ROM. No swelling noted. No TTP of the AC joint. No TTP of the subacromial bursa. No TTP of the posterior shoulder Left shoulder: Full ROM. No swelling noted. No TTP of the AC joint. No TTP of the subacromial bursa. No TTP of the posterior shoulder Knees Right knee: Full ROM. No swelling noted. No TTP of the knee joint line. No TTP of pes anserine bursa Left knee: Full ROM. No swelling noted. No TTP of the knee joint line. No TTP of pes anserine bursa. Crepitations felt bilaterally Ankles Right ankle: Good ankle dorsiflexion and plantar flexion. No swelling. No TTP of the ankle joint Left ankle: Good ankle dorsiflexion and plantar flexion. No swelling. No TTP of the ankle joint Feet Right foot: Negative squeeze test Left foot: Negative squeeze test Tender points? No tenderness to palpation of the bilateral trapezius, supraspinatus, anterior costochondral junctions, bilateral suboccipital muscle insertions SKIN No rashes No tophi Vital Signs: Last Vital Signs Pulse 89 04/29/25 12:48 BP 142/94 H 04/29/25 12:48 Pulse Ox 99 04/29/25 12:48 Oxygen Delivery Method Room Air 04/29/25 12:48 BMI result Body Mass Index 45.5 Results Reviewed Results Reviewed: Laboratory Tests 04/12/24 06/02/24 11/25/24 15:25 16:43 15:57 WBC 7.4 RBC 4.96 Hgb 14.3 Hct 41.3 L Plt Count 316 ESR 19 H 13 Sodium 140 Potassium 4.1 Chloride 104 Carbon Dioxide 27 BUN 18 H Creatinine 0.83 Uric Acid 7.6 H 7.7 H AST 52 H ALT 108 H C-Reactive Protein 0.83 H 0.54 H Assessment & Plan Assessment & Plan (1) Gout: Comment: Ddx 05/2024 Allopurinol 05/2024 Code(s): M10.9 - Gout, unspecified Category: Medical Qualifiers: Chronicity: chronic Gout etiology: idiopathic Gout site: foot Laterality: unspecified laterality Presence of tophus: without tophus Qualified Code(s): M1A.0790 - Idiopathic chronic gout, unspecified ankle and foot, without tophus (tophi) Plan: #Non crystal proven non tophaceous gout Patient is a 34-year-old male with presumed gouty arthritis here today for follow up. Resolved Achilles tendonitis Doing well Hand pain after long hours on computer may be early carpal tunnel. negative Phalen's test today but will still recommend splinting when typing Plan - Allopurinol 600mg daily - Colchicine 0.6mg daily - Labs today: CBC, CMP, ESR, CRP, uric acid - Increase allopurinol if Uric Acid not <6 - RTC 6 months - Labs before visit: CBC, CMP, ESR, CRP, uric acid (2) Bilateral primary osteoarthritis of knee: Code(s): M17.0 - Bilateral primary osteoarthritis of knee Plan: #Bilateral knee OA Patient's exam today is consistent with bilateral knee osteoarthritis. Encouraged weight loss. Follow up with ortho for left knee concerns (3) Encounter for monitoring allopurinol therapy: Code(s): Z51.81 - Encounter for therapeutic drug level monitoring; Z79.899 - Other chcf (current) drug therapy Plan: #Long-term Current Use of Allopurinol Risks and benefits of allopurinol discussed with patient Benefits include decreased gout flares, remission of gout and reduction of tophi Risks include allopurinol hypersensitivity syndrome which is a severe cutaneous adverse reaction associated with allopurinol use particularly in patients who are HLA [id number] positive, increased transaminases, GI upset including diarrhea, nausea and vomiting, and other dermatologic manifestations. (4) On colchicine therapy: Code(s): Z79.899 - Other chcf (current) drug therapy Plan: #Long-term use of colchicine Risks and benefits of long-term colchicine for the management of this patient's gout discussed with patient. Benefits include reduced occurrence of flares while we titrate and regulate his uric acid on allopurinol and other uric acid lowering medications. ? Risks include worsening myalgias especially if on statins and GI upset including diarrhea Plan I spent 30 minutes reviewing the record and labs, taking a history, examining the patient, discussing the treatment plan, ordering diagnostic work up and documenting in the medical record Orders: Orders Complete Blood Count Auto Diff 6 Months M1A.789 - Idiopathic chronic gout, unspecified ankle and foot, without tophus (tophi) C Reactive Protein 6 Months M1A.789 - Idiopathic chronic gout, unspecified ankle and foot, without tophus (tophi) Erythrocyte Sedimentation Rate 6 Months M1A.789 - Idiopathic chronic gout, unspecified ankle and foot, without tophus (tophi) Uric Acid 6 Months M1A.789 - Idiopathic chronic gout, unspecified ankle and foot, without tophus (tophi) Complete Blood Count Auto Diff Today M1A.789 - Idiopathic chronic gout, unspecified ankle and foot, without tophus (tophi) Comprehensive Met. Panel Today M1A.789 - Idiopathic chronic gout, unspecified ankle and foot, without tophus (tophi) Erythrocyte Sedimentation Rate Today M1A.789 - Idiopathic chronic gout, unspecified ankle and foot, without tophus (tophi) Comprehensive Met. Panel 6 Months M1A.789 - Idiopathic chronic gout, unspecified ankle and foot, without tophus (tophi) C Reactive Protein Today M1A - Idiopathic chronic gout, unspecified ankle and foot, without tophus (tophi) Uric Acid Today M1A - Idiopathic chronic gout, unspecified ankle and foot, without tophus (tophi) Coding Level of Care Code Est Pt Level 4 (24121) Complex EM visit Add On G2211 Diagnoses Idiopathic chronic gout of foot without tophus, unspecified laterality M1A Chronicity: chronic Gout etiology: idiopathic Gout site: foot Laterality: unspecified laterality Presence of tophus: without tophus Bilateral primary osteoarthritis of knee M17.0 Encounter for monitoring allopurinol therapy Z51.81; Z79.899 On colchicine therapy Z79.899
[2025-04-29 12:48] VITALS: BP 142/94; PULSE 89; O2SAT 99; BMI 45.5
--- OUTSIDE RECORDS SUMMARY | 2025-04-29 13:13 | XMS_ITS | Encounter Summary ---
Author Organization [facility] Address [address] [place] [address] Phone Care Team Providers Care Range Mechanic Name Role Phone Jeane Harper MD Primary Care Provider Reason for Referral * MRI/CAT Scan - Closed Specialty Diagnoses / Procedures Referred By Lima lewis Referred To Contact Radiology Diagnoses Calculus of kidney Generalized abdominal pain Procedures CT Abdomen/Pelvis CHG CT SCAN,ABDOMENT AND PELVIS,W/O CONTRAST Farhana Peña PA-C [address] [place] [address], [address] [place] [address] Phone: tel: fax: [email or web address] Referral ID Status Reason Start Date Expiration Date Visits Re quested Visits Authorized [id number] Closed 08/15/2023 02/10/2024 1 1 Encounter Details Date Type Department Care Team (Latest Contact Info) Description 08/15/2023 Transcribe Orders Virtual Department [address] [place] [address] Farhana Peña PA-C [address] [place] [address], [address] [place] [phone] [email or web address] Calculus of kidney (Primary Dx); Generalized abdominal pain Social History Tobacco Use Types Packs/Day Years [...] Orientation Straight 02/26/2022 5: 16 PM EDT documented as of this encounter Plan of Treatment Not on file documented as of this encounter Results * CT ABDOMEN/PELVIS (KIDNEY STONE) WITHOUT CONTRAST (08/22/2023 5:32 PM EST) Anatomical Region Laterality Modality Abdomen, Pelvis Computed Tomogra phy 08/25/2023 8:21 PM EST Impressions 08/25/2023 9:53 PM EST 3 mm nonobstructing left renal stone, similar in size to prior but located in a different calyx. No hydronephrosis. Narrative 08/25/2023 9:[address] ABDOMEN/PELVIS (KIDNEY STONE) WITHOUT CONTRAST Referring clinician's provided indication for this examination in Epic: Outside Radiology Order; CALCULUS OF KIDNEY, GENERALIZED ABDOMINAL PAIN TECHNIQUE: Multidetector-row CT of the abdomen and pelvis was performed without intravenous contrast using tailored dose modulation techniques. Images were reconstructed in the axial, coronal, and sagittal planes. COMPARISON: CT abdomen/pelvis 10/24/2022 FINDINGS: Lower Chest: Normal. No consolidation or pleural effusions. Liver: No suspicious focal liver lesion. Biliary: No biliary ductal dilatation. Spleen: Normal. No splenomegaly or focal lesions. Pancreas: Normal. No masses or ductal dilatation. Adrenal Glands: Stable 1.5 cm left adrenal nodule, with density value diagnostic of a adrenal adenoma. Kidneys/Ureters: No solid renal mass or hydronephrosis. 4 mm nonobstructing left lower pole renal stone. Bowel: No bowel obstruction or wall thickening. Colonic diverticulosis. Normal appendix. Peritoneum/Retroperitoneum: Normal. No masses, pneumoperitoneum, or fluid. Lymph Nodes: Normal. No lymphadenopathy. Pelvic Organs/Bladder: Normal. No mass. Vessels: No abdominal aortic aneurysm. Bones/Soft Tissues: No suspicious focal osseous lesion. Benign bone island in the medial left iliac bone. Procedure Note Leo Billings MD - 08/25/2023 CT ABDOMEN/PELVIS (KIDNEY STONE) WITHOUT CONTRAST Referring clinician's provided indication for this examination in Epic:Outside Radiology Order; CALCULUS OF KIDNEY, GENERALIZED ABDOMINAL PAIN TECHNIQUE: Multidetector-row CT of the abdomen and pelvis was performedwithout intravenous contrast using tailored dose modulation techniques.Images were reconstructed in the axial, coronal, and sagittal planes. COMPARISON: CT abdomen/pelvis 10/24/2022 FINDINGS: Lower Chest: Normal. No consolidation or pleural effusions. Liver: No suspicious focal liver lesion. Biliary: No biliary ductal dilatation. Spleen: Normal. No splenomegaly or focal lesions. Pancreas: Normal. No masses or ductal dilatation. Adrenal Glands: Stable 1.5 cm left adrenal nodule, with density valuediagnostic of a adrenal adenoma. Kidneys/Ureters: No solid renal mass or hydronephrosis. 4 mmnonobstructing left lower pole renal stone. Bowel: No bowel obstruction or wall thickening. Colonic diverticulosis.Normal appendix. Peritoneum/Retroperitoneum: Normal. No masses, pneumoperitoneum, orfluid. Lymph Nodes: Normal. No lymphadenopathy. Pelvic Organs/Bladder: Normal. No mass. Vessels: No abdominal aortic aneurysm. Bones/Soft Tissues: No suspicious focal osseous lesion. Benign bone islandin the medial left iliac bone. IMPRESSION: 3 mm nonobstructing left renal stone, similar in size to prior but locatedin a different calyx. No hydronephrosis. us Farhana Peña PA-C IMG CT ABD/PELVIS Final Result documented in this encounter Visit Diagnoses Diagnosis Calculus of kidney- Primary Generalized abdominal pain Abdominal pain, generalized Calculus of kidney Generalized abdominal pain Abdominal pain, generalized documented in this encounter Additional Health Concerns Assessment Noted Time PHQ-9 Depression Total Score: 14 10/22/ 018 9:39 AM EDT PHQ-2 Depression Total Score: 2 11/27/19 18 11:00 AM EDT documented as of this encounter Care Teams Range Mechanic Relationship Specialty Start Date End Date Jeane Harper MD [address] [place] [address] [place] [phone] PCP - General Internal Medicine 08/15/23 documented as of this encounter Additional Source Comments The information contained in this document represents components of the legal health record. It is not the complete legal health record.[facility]
--- OUTSIDE RECORDS SUMMARY | 2025-04-29 13:13 | XMS_ITS | Encounter Summary ---
Author Organization [facility] Address [address] [place] [address] 7 [place] [address] Care Team Providers Care Carpenter Helper Maintenance Name Role Phone Unavailable Primary Care Provider [...]
--- OUTSIDE RECORDS SUMMARY | 2025-04-29 13:13 | XMS_ITS | Clinical Summary ---
Author Organization [employer] Address [address] [place] [address] 7 [place] [address] Care Team Providers Care Manager Fraud Name Role Phone Unavailable Primary Care Provider [...] Date Last Done Comments Depression Screening 1991 Disability Screening 1991 Alcohol/Substance Use Screening 2003 Tobacco Screening 2003 Family Planning (PISQ) 12/08/2006 HPV Vaccines (1 - 3-dose series) 12/08/2006 DTaP/Tdap/Td Vaccines (1 - Tdap) 12/08/2010 Hepatitis B Vaccines (1 of 3 - 19+ 3-dose series) 12/08/2010 COVID-19 Vaccine (1 - 2023-2 5 season) 2025 Influenza Vaccine (#1) 2025 Zoster Vaccines (1 of 2) 12/08/2041 RSV [...] Years) and At-Risk Patients (6 to 49) Years Aged Out No longer eligible b ased on patient's age to complete this topic RSV under 20 months Aged Out No longe r eligible based on patient's age to complete this topic Rotavirus Vaccines Aged Out No longer eligible based on patient's age to complete this topic
--- OUTSIDE RECORDS SUMMARY | 2025-04-29 13:13 | XMS_ITS | Clinical Summary ---
Author Organization [facility] Address [address] [place] [address] Phone Care Team Providers Care Liquefaction Supervisor Name Role Phone Jeane Harper MD Primary Care Provider Allergies No known active allergies Medications lisdexamfetamin [...] 1 (one) time each day. 08/15/2024 Active tirzepatide, weight loss, (Zepbound) 10 mg/0.5 mL injection Inject 0.5 mL (10 mg total) under the skin every 7 (seven) days. 2 mL 04/18/2025 05/18/20 25 Active tirzepatide, weight loss, (Zepbound) 7.5 mg/0.5 mL injection Inject 0.5 mL (7.5 mg total) under the skin every 7 (seven) days. 2 mL 03/14/2025 04/13/20 25 Active Problems Problem Noted Date Diagnosed Date Anxiety 01/04/2025 ADHD 02/13/2024 Autism 02/13/2024 Depression 02/13/2024 Hypertension 02/13/2024 Morbid obesity (CMS/HCC V24, CMS/HCC V28) 2023 PTSD (post-traumatic stress disorder) 02/13/2024 Elevated blood pressure read ing without diagnosis of hypertension 12/17/2017 Other abnormal glucose 11/27/2017 Grief reaction 10/22/2017 Encounters Date Type Department Care Team Description 04/15/2025 Telephone Bariatric Surgery [facility] [address] [phone] Cyndee Wharton PA 03/11/2025 Telephone Bariatric Surgery [address] [phone] Jerome Higgins MD from Last [...] 90 09/20/2024 2:48 PM EST Temperature 36.8 C (98.2 F) 09/20/2024 2:48 PM EST Respiratory Rate - - Oxygen Saturation - - Inhaled Oxygen Concentration - - Weight 156 kg (343 lb) 09/20/2024 2:48 PM EST Height 180.3 cm (5' 11 ) 09/20/2024 2:48 PM EST Body Mass Index 47.84 09/20/2024 2:48 PM EST Plan of Treatment Upcoming Encounters Date Type Department Care Team (Late st Contact Info) Description 08/09/2025 9:45 AM EST Office Visit Bariatric Surgery [address] [phone] Jerome Higgins MD [address] [place] [phone] Health Maintenance Due Date Last Done Comments Hepatitis B Vaccines (1 of 3 - 19+ 3-dose series) 12/08/2010 HPV Vaccines (1 - 3-dose SCD M series) 12/08/2018 HIV Screening 02/20/2024 Social Influencers of Health Screening 02/20/2024 Depression Screening 07/28/2024 02/13/2024 COVID-19 Vaccine (2 - 2024-2 6 season) 2025 07/05/2022 Influenza Vaccine (#1) 2025 , 05/24/2009, 05/24/2009 Hypertension/CHF/CAD Annual BMP Blood Test 09/24/2025 09/24/2024, 10/22/2017 DTaP,Tdap,and Td Vaccines (2 - Td or Tdap) 10/23/2027 10/22/2017 Cholesterol Screening (Lipid Panel) 09/24/2029 09/24/2024 RSV Immunization Adult Patients (1 - 1-dose 75+ series) 12/08/2066 Hepatitis C Screening Completed 10/22/2017 HIB Vaccines [...] 5 Years) and At-Risk Patients (6 to 49 Years) Aged Out No longer eligible b ased on patient's age to complete this topic RSV Immunization Patients Under 20 months Aged Out No longer eligible b ased on patient's age to complete this topic Varicella Vaccines Aged Out No longer eligible based on patient's age to complete this topic Procedures Procedure Name Priority Date/Time Associated Diagnosis Comments COMPREHENSIVE METABOLIC PANEL Routine 09/24/2024 3:48 PM EST Class 3 severe obesity due to excess calories without serious comorbidity with body mass index (BMI) of 45.0 to 49.9 in adult (CMS/HCC V24, CMS/HCC V28) LIPID PANEL WITH REFLEX TO DIRECT LDL Routine 09/24/2024 3:48 PM EST Class 3 severe obesity due to excess calories without serious comorbidity with body mass index (BMI) of 45.0 to 49.9 in adult (CMS/HCC V24, CMS/HCC V28) DEPRESSION SCREENING Routine 02/13/2024 from Last 3 Months or Most Recently Relevant to Health Maintenance Results * (ABNORMAL) Lipid panel with reflex to direct LDL (09/24/2024 3:48 PM EST) [facility] Cholesterol 159 0 - 200 mg/dL LAB CHEMISTRY METHOD 09/24/2024 7:55 PM EST [facility] Triglycerides 118 0 - 150 mg/dL LAB CHEMISTRY METHOD 09/24/2024 7:55 PM [facility] HDL 36(L) >=40 mg/dL LAB CHEMISTRY METHOD 09/24/2024 7:55 PM EST [facility] LDL Calculated 99 0 - 100 mg/dL LAB CHEMISTRY METHOD 09/24/2024 7:55 PM EST [facility] VLDL Cholesterol Trip 23.6 mg/dL LAB CHEMISTRY METHOD 09/24/2024 7:55 PM EST [facility] Non HDL Chol. (LDL+VLDL) 123 <145 mg/dL LAB CHEMISTRY METHOD 09/24/2024 7:55 PM EST [facility] Chol/HDL Ratio 4.4 0.0 - 4.4 LAB CHEMISTRY METHOD 09/24/2024 7:55 PM [facility] Blood Venous blood specimen / Unknown Venipuncture / Unknown 09/24/2024 3:48 PM EST 09/24/2024 7:07 PM EST us Jerome Higgins MD LAB BLOOD ORDERABLES Final R esult [facility] [address] [place] [address], [place] [phone] * (ABNORMAL) Comprehensive metabolic panel (09/24/2024 3:48 PM EST) Sodium 137 133 - 145 mmol/L LAB CHEMISTRY METHOD 09/24/2024 7:55 PM [facility] Potassium 4.0 3.5 - 5.5 mmol/L LAB CHEMISTRY METHOD 09/24/2024 7:55 PM [facility] Chloride 104 96 - 110 mmol/L LAB CHEMISTRY METHOD 09/24/2024 7:55 PM [facility] CO2 26 21 - 32 mmol/L LAB CHEMISTRY METHOD 09/24/2024 7:55 PM [facility] Anion Gap 7 3 - 11 LAB CHEMISTRY METHOD 09/24/2024 7:55 PM [facility] Glucose 118(H) 70 - 100 mg/dL LAB CHEMISTRY METHOD 09/24/2024 7:55 PM [facility] BUN 21 5 - 25 mg/dL LAB CHEMISTRY METHOD 09/24/2024 7:55 PM [facility] Creatinine 0.78 0.70 - 1.30 mg/dL LAB CHEMISTRY METHOD 09/24/2024 7:55 PM [facility] eGFR 122 >=60 mL/min/1. 73m2 LAB CHEMISTRY METHOD 09/24/2024 7:55 PM [facility] Comment:Calculation based on the Chronic Kidney Disease Epidemiology Collaboration (CKD-EPI) equation refit without adjustment for race. BUN/Creatinine Ratio 26.9 LAB CHEMISTRY METHOD 09/24/2024 7:55 PM [facility] Calcium 9.2 8.5 - 10.5 mg/dL LAB CHEMISTRY METHOD 09/24/2024 7:55 PM [facility] AST (SGOT) 20 10 - 42 unit/L LAB CHEMISTRY METHOD 09/24/2024 7:55 PM [facility] ALT (SGPT) 58 10 - 60 unit/L LAB CHEMISTRY METHOD 09/24/2024 7:55 PM EST [facility] Alkaline Phosphatase 61 42 - 121 unit/L LAB CHEMISTRY METHOD 09/24/2024 7:55 PM EST [facility] Total Protein 7.5 6.0 - 8.0 g/dL LAB CHEMISTRY METHOD 09/24/2024 7:55 PM EST [facility] Albumin 4.2 3.2 - 5.0 g/dL LAB CHEMISTRY METHOD 09/24/2024 7:55 PM [facility] Total Bilirubin 0.6 0.0 - 1.4 mg/dL LAB CHEMISTRY METHOD 09/24/2024 7:55 PM [facility] Blood Venous blood specimen / Unknown Venipuncture / Unknown 09/24/2024 3:48 PM EST 09/24/2024 7:07 PM EST us Jerome Higgins MD LAB BLOOD ORDERABLES Final R esult [facility] [address] [place] [address], [place] [phone] * Depression Screening (02/13/2024) Depression Screening abstracted us Historical Provider HEALTH MAINTENANCE Final Result from Last 3 Months or Most Recently Relevant to Health Maintenance Insurance [facility] [facility] Care Teams Liquefaction Supervisor Relationship Specialty Start Date End Date Jeane Harper MD [address] [place] [address] [place] [address] PCP - General 12/05/23
--- OUTSIDE RECORDS SUMMARY | 2025-04-29 13:13 | XMS_ITS | Encounter Summary ---
Author Organization [facility] Address [address] [facility] [address] [place] [phone] Phone Care Team Providers Care Resource Analyst Name Role Phone Pcp, Unknown Primary Care Provider Jeane Spencer MD Primary Care Provider Encounter Details Date Type Department Care Team (Late st Contact Info) Description 10/24/2022 Procedure Pass [facility], Ct Scan - [facility] [address] [place] [address] Social History Tobacco Use Types Packs/Day Years Used Date Smoking Tobacco: Never Smokeless Tobacco: Never Sex and Gender Information Value Date Recorded Sex Assigned at Male 02/26/2022 5:16 PM EDT Legal Sex Male 5:17 PM EST Gender Identity Male 02/26/2022 5:16 PM EDT Sexual Orientation Straight 02/26/2022 5: 16 PM EDT documented as of this encounter Functional Status * Calculated C-SSRS Risk Score (Lifetime/Recent) Answer Date of Assessment Author No Risk Indicated 10/24/2022 10:32 PM EDT Brandt Jamil RN * [place] Suicide Severity Rating Scale (Screener/Recent Self-Report) Question Answer Date of Assessment Author 1. Wish to be (Past 1 Month) No 023 10:32 PM EDT Brandt Jamil, [place] 2. Non-Specific Active Suici jeramy Thoughts (Past 1 Month) No 10/24/2022 10:32 PM EDT Michael Jamil RN 6. Suicidal Behavior (Lifetime) No 03/30/202 3 10:32 PM EDT Brandt Jamil, RN documented as of this encounter Plan of Treatment Not on file documented as of this encounter Visit Diagnoses Not on filedocumented in this encounter Additional Health Concerns Assessment Noted Time PHQ-9 Depression Total Score: 14 10/22/ 018 9:39 AM EDT PHQ-2 Depression Total Score: 2 11/27/19 18 11:00 AM EDT documented as of this encounter Care Teams Resource Analyst Relationship Specialty Start Date End Date Pcp, Unknown PCP - General 02/26/22 08/14/23 Jeane Harper MD [address] [place] [address] [place] [phone] PCP - General Internal Medicine 08/15/23 documented as of this encounter Additional Source Comments The information contained in this document represents components of the legal health record. It is not the complete legal health record.[facility]
--- OUTSIDE RECORDS SUMMARY | 2025-04-29 13:13 | XMS_ITS | Encounter Summary ---
Author Organization [facility] Address [address] [facility] [address] [place] [address] Phone Care Team Providers Care Network Announcer Name Role Phone Jeane Harper MD Primary Care Provider Encounter Details Date Type Department Care Team (Late st Contact Info) Description 08/15/2023 Procedure Pass [facility], Ct Scan - [address] [address] Social History Tobacco Use Types Packs/Day Years [...] documented as of this encounter Care Teams Network Announcer Relationship Specialty Start Date End Date Jeane Harper MD [address] [place] [address] [place] [phone] PCP - General Internal Medicine 08/15/23 documented as of this encounter Additional Source Comments The information contained in this document represents components of the legal health record. It is not the complete legal health record.[facility]
--- OUTSIDE RECORDS SUMMARY | 2025-04-29 13:13 | XMS_ITS | Clinical Summary ---
Author Organization [facility] Address [address] [facility] [address] [place] [address] Phone Care Team Providers Care Heel Emery Buffer Name Role Phone Jeane Harper MD Primary [...] Ophthalmology status: Advised to follow up with neurology professor regularly. Immunization status: Due for tetanus and [...] provided. Immunizations Immunization Administration Dates Next Due [id number] FORMULATION 05/24/2009 Influenza, Unspecified Formulation 05/24/2009 Tdap [...] Done Comments DEPRESSION SCREENING 11/26/2018 11/26/2017, 10/22/2017 INFLUENZA VACCINE (#1) 2025 9, 05/24/2009 COVID-19 VACCINE (2024-2 6 season) 2025 11/02/2020 Adult Td,Tdap Booster 10/23/2027 10/22/2017 HEPATITIS [...] 10:52 AM EDT) HCV ANTIBODY Negative Negative [facility] Comment:Antibodies to HCV no t detected. Does not exclude the possibility of exposure to HCV. 10/22/2017 10:5 2 AM EDT 10/22/2017 11:42 AM EDT us Ana Paula ORO LAB BLOOD ORDERABL ES Final Result [facility] [address] [place] [address] from Last 3 Months or Most Recently Relevant to Health Maintenance Insurance [facility] [employer] [facility] [employer] [facility] [employer] [facility] [employer] [facility] [employer] [facility] [employer] [facility] Care Teams Heel Emery Buffer Relationship Specialty Start Date End Date Jeane Harper MD [address] [place] [address] [place] [phone] PCP - General Internal Medicine 08/15/23 Additional Source Comments The information contained in this document represents components of the legal health record. It is not the complete legal health record.[facility]
== END 2025-04-29 13:10 | disposition home or self-care (01) ==
LOC: HO.RHES 12:36
PROVIDERS: PCP Internal Medicine; Visit Provider Student in an Organized Health Care Education/Training Program
DX: M1A.0790 Idiopathic chronic gout, unspecified ankle and foot, without tophus (tophi) (principal); M17.0 Bilateral primary osteoarthritis of knee; Z51.81 Encounter for therapeutic drug level monitoring; Z79.899 Other long term (current) drug therapy
CPT/HCPCS: 99214

== ENCOUNTER 2025-04-29 12:36 | Outpatient (REF) | payer OTHER, SELFPAY ==
[2025-04-29 18:27] LABS: MANUAL DIFF FLAG NO
[2025-04-29 18:41] LABS: Hematocrit 39.4 % (42.0-52.0); Hemoglobin 13.3 g/dl (14.0-18.0); Imm Gran Abs Auto 0.02 X10*3/uL (0.00-0.03); Imm Gran Pct Auto 0.3 % (0.0-0.4); Lymphocytes Absolute Auto 2.4 X10*3/uL (1.2-4.9); Mean Corpuscular HGB Conc 33.8 g/dl (31.0-36.0); Mean Corpuscular Hemoglobin 29.0 pg (27.0-33.0); Mean Corpuscular Volume 85.8 fL (80.0-98.0); NRBC Abs Auto 0.000 X10*3/uL (0.0-0.012); NRBC Pct Auto 0.0 /100WBC (0.0-0.2); Platelet Count 268 X10*3/uL (160-400); Red Blood Count 4.59 X10*6/uL (4.60-5.80); White Blood Count 7.1 X10*3/uL (4.8-10.8)
[2025-04-29 18:49] LABS: Alanine Aminotransferase 61 U/L (0-40); Albumin Level 4.5 g/dL (3.5-5.0); Alkaline Phosphatase 49 U/L (39-117); Anion Gap 10 (12-20); Aspartate Amino Transferase 43 U/L (5-37); Blood Urea Nitrogen 19 mg/dL (9-16); Calcium 9.1 mg/dL (8.4-10.2); Carbon Dioxide 25 mmol/L (22-29); Chloride 108 mmol/L (96-108); Estimated Glomerular Filt Rate > 60; Iron 54 mcg/dL (45-160); Percent Iron Saturation 19 % (15-50); Potassium 3.9 mmol/L (3.3-5.1); Sodium 139 mmol/L (135-145); Total Iron Binding Capacity 285 mcg/dL (228-428); Total Protein 7.0 g/dL (6.5-8.0); Unsaturated Iron Binding 231 ug/dL; Uric Acid 4.5 mg/dL (3.4-7.0)
[2025-04-29 19:15] LABS: Ferritin 82 ng/mL (20-250)
[2025-04-29 19:20] LABS: Folate 10.2 ng/mL (> or = 4.0); Vitamin B12 367 pg/mL (200-900)
[2025-05-03 00:28] LABS: Immunoglobulin A 175 mg/dL (47-310)
[2025-05-06 19:38] LABS: Calprotectin, Fecal 35 mcg/g
== END 2025-04-29 12:37 | disposition home or self-care (01) ==
LOC: HO.HKASLDS 12:36
PROVIDERS: Internal Medicine; PCP Internal Medicine; Visit Provider Student in an Organized Health Care Education/Training Program
DX: M1A.0790 Idiopathic chronic gout, unspecified ankle and foot, without tophus (tophi) (principal); M17.0 Bilateral primary osteoarthritis of knee; Z51.81 Encounter for therapeutic drug level monitoring; Z79.899 Other long term (current) drug therapy; K52.9 Noninfective gastroenteritis and colitis, unspecified; K92.1 Melena; K90.9 Intestinal malabsorption, unspecified
CPT/HCPCS: 36415; 80053; 82306; 82607; 82728; 82746; 82784; 83540; 83993; 84443; 84550; 85025; 85027; 85652; 86140; 86364; 99212